=== PATIENT | male | born 1945 | race Caucasian/White ===

== ENCOUNTER 2016-10-29 14:20 | Outpatient (CLI) | payer MEDICARE, OTHER | END 2016-10-29 14:21 | disposition home or self-care (01) | LOC: LAB.WCP 14:20 | PROVIDERS: ATTEND Family Medicine | DX: L97.821 Non-pressure chronic ulcer of other part of left lower leg limited to breakdown of skin (principal) | CPT/HCPCS: 87070; 87205 ==

== ENCOUNTER 2016-10-30 07:57 | Outpatient (CLI) | payer MEDICARE, OTHER ==
[2016-10-30 19:47] LABS: BASOPHILS # (AUTO) 0.1 10^3/uL (0.0-0.1); EOSINOPHILS # (AUTO) 0.1 10^3/uL (0.0-0.7); EOSINOPHILS % (AUTO) 1.8 %; HCT - HEMATOCRIT 36.5 % (42.0-52.0); HGB - HEMOGLOBIN 12.1 g/dL (14.0-18.0); LYMPHOCYTES # (AUTO) 1.6 10^3/uL (1.5-3.5); LYMPHOCYTES % (AUTO) 23.2 %; MEAN CORPUSCULAR HEMOGLOBIN 32.7 pg (27.0-31.0); MEAN CORPUSCULAR HGB CONC 33.2 g/dL (32.0-36.0); MEAN CORPUSCULAR VOLUME 98.5 fL (80.0-94.0); MEAN PLATELET VOLUME 9.3 fL (7.4-11.4); MONOCYTES # (AUTO) 0.7 10^3/uL (0.0-1.0); MONOCYTES % (AUTO) 10.5 %; NEUTROPHILS # (AUTO) 4.3 10^3/uL (1.5-6.6); NEUTROPHILS % (AUTO) 63.5 %; NUCLEATED RED BLOOD CELLS AUTO 0.1 /100WBC; RED CELL DISTRIBUTION WIDTH 13.7 % (12.0-15.0); UNCORRECTED WHITE BLOOD COUNT 6.9 x10^3/uL; WHITE BLOOD COUNT 6.9 x10^3/uL (4.8-10.8)
[2016-10-30 20:15] LABS: HEMOGLOBIN A1C 0.52 g/dL
[2016-10-30 20:25] LABS: ALBUMIN/GLOBULIN RATIO 1.4 (1.0-2.2); BILIRUBIN,TOTAL 0.8 mg/dL (0.2-1.0); BUN - BLOOD UREA NITROGEN 32 mg/dL (6-20); CALCIUM 9.4 mg/dL (8.5-10.3); CARBON DIOXIDE - CO2 28 mmol/L (21-32); CHLORIDE 102 mmol/L (101-111); CHOL/HDL RATIO 5.1 (<5.0); CHOLESTEROL 224 mg/dL; CREATININE 1.8 mg/dL (0.6-1.2); GFR - MDRD 37 (>89); GLUCOSE 123 mg/dL (70-100); HDL CHOLESTEROL 44 mg/dL; LDL/HDL RATIO 3.2 (<3.6); POTASSIUM 4.7 mmol/L (3.5-5.0); SODIUM 139 mmol/L (135-145); TOTAL PROTEIN 7.1 g/dL (6.7-8.2); TRIGLYCERIDES 191 mg/dL; VLDL CHOLESTEROL 38 mg/dL
== END 2016-10-30 07:58 | disposition home or self-care (01) ==
LOC: LAB.WCP 07:57
PROVIDERS: ATTEND Family Medicine
DX: R60.9 Edema, unspecified (principal); I10 Essential (primary) hypertension; N28.9 Disorder of kidney and ureter, unspecified; E78.5 Hyperlipidemia, unspecified; E74.39 Other disorders of intestinal carbohydrate absorption; R73.01 Impaired fasting glucose
CPT/HCPCS: 36415; 80053; 80061; 83036; 84443; 85025

== ENCOUNTER 2017-01-23 13:27 | Outpatient (CLI) | payer MEDICARE, OTHER ==
[2017-01-23] MEDS ORDERED: ALBUTEROL NEB 2.5 MG/3 ML INH ONE (14:30)
== END 2017-01-23 13:28 | disposition home or self-care (01) ==
LOC: RT 13:27
PROVIDERS: ATTEND Physician Assistant Medical
DX: R06.00 Dyspnea, unspecified (principal)
CPT/HCPCS: 94060; 94729; J7613

== ENCOUNTER 2017-02-14 14:15 | Outpatient (CLI) | payer MEDICARE, OTHER ==
[2017-02-14 13:19] LABS: BASOPHILS # (AUTO) 0.1 10^3/uL (0.0-0.1); BASOPHILS % (AUTO) 0.7 %; EOSINOPHILS # (AUTO) 0.1 10^3/uL (0.0-0.7); EOSINOPHILS % (AUTO) 1.8 %; HCT - HEMATOCRIT 35.6 % (42.0-52.0); HGB - HEMOGLOBIN 12.1 g/dL (14.0-18.0); LYMPHOCYTES # (AUTO) 1.5 10^3/uL (1.5-3.5); LYMPHOCYTES % (AUTO) 20.3 %; MEAN CORPUSCULAR HEMOGLOBIN 32.8 pg (27.0-31.0); MEAN CORPUSCULAR VOLUME 96.5 fL (80.0-94.0); MEAN PLATELET VOLUME 9.5 fL (7.4-11.4); MONOCYTES # (AUTO) 0.6 10^3/uL (0.0-1.0); MONOCYTES % (AUTO) 8.3 %; NEUTROPHILS % (AUTO) 68.9 %; NUCLEATED RED BLOOD CELLS AUTO 0.1 /100WBC; RED BLOOD COUNT 3.69 10^6/uL (4.70-6.10); RED CELL DISTRIBUTION WIDTH 13.1 % (12.0-15.0); UNCORRECTED WHITE BLOOD COUNT 7.3 x10^3/uL; WHITE BLOOD COUNT 7.3 x10^3/uL (4.8-10.8)
[2017-02-14 14:22] LABS: ALBUMIN/GLOBULIN RATIO 1.3 (1.0-2.2); BILIRUBIN,TOTAL 0.7 mg/dL (0.2-1.0); BUN - BLOOD UREA NITROGEN 31 mg/dL (6-20); CARBON DIOXIDE - CO2 25 mmol/L (21-32); CHLORIDE 106 mmol/L (101-111); CHOL/HDL RATIO 4.8 (<5.0); CHOLESTEROL 219 mg/dL; CREATININE 1.8 mg/dL (0.6-1.2); GFR - MDRD 37 (>89); GLUCOSE 107 mg/dL (70-100); HDL CHOLESTEROL 46 mg/dL; LDL/HDL RATIO 3.1 (<3.6); POTASSIUM 5.1 mmol/L (3.5-5.0); SODIUM 138 mmol/L (135-145); TOTAL PROTEIN 7.2 g/dL (6.7-8.2); TRIGLYCERIDES 151 mg/dL; VLDL CHOLESTEROL 30 mg/dL
[2017-02-14 14:36] LABS: HEMOGLOBIN A1C 0.46 g/dL
== END 2017-02-14 14:16 | disposition home or self-care (01) ==
LOC: LAB.WCP 14:15
PROVIDERS: ATTEND Physician Assistant Medical
DX: I10 Essential (primary) hypertension (principal); R73.01 Impaired fasting glucose; Z12.5 Encounter for screening for malignant neoplasm of prostate; E78.5 Hyperlipidemia, unspecified
CPT/HCPCS: 36415; 80053; 80061; 83036; 85025; G0103; 84153

== ENCOUNTER 2017-03-22 06:44 | Emergency (ER) | payer MEDICARE, OTHER ==
[2017-03-22] MEDS ORDERED: SODIUM CHLORIDE 0.9% 1,000 ML IV ONE (07:16)
--- NOTE | 2017-03-22 07:18 | ED Physician Documentation ---
PD HPI ABD PAIN - Stated complaint Stated Complaint: ABD PX - Chief complaint Chief Complaint: Abd Pain - History obtained from History obtained from: Patient (Pt states that last night at approx 1730 he had the gradual onset of epigastric abd pain that was sharp and has continued throughout the night and is not diffuse in his ABD. no nausea or vomiting, no diarrhea, states that he had a small BM yesterday AM with his last BM 2 days ago.) - History of Present Illness Timing - details: Gradual onset, Still present Quality: Sharp Location: All over / everywhere Radiation: No: Chest, Lower back, Left flank, Left shoulder, Right shoulder, Upper back Improved by: Other (nothing) Worsened by: Other (nothing) Review of Systems Constitutional: denies: Fever, Chills, Fatigue Ears: denies: Tinnitus/ringing Nose: denies: Rhinorrhea / runny nose, Congestion, Sinus pressure / pain Throat: denies: Sore throat Cardiac: reports: Pedal edema (chronic LE swelling). denies: Chest pain / pressure, Palpitations Respiratory: reports: Dyspnea (has COPD and now with SOB because of the pain) GI: reports: Abdominal Pain, Abdominal Swelling, Constipation. denies: Nausea, Diarrhea, Hematemesis : denies: Dysuria, Frequency, Hesitancy, Unable to Void, Incontinent Skin: denies: Rash, Lesions Musculoskeletal: denies: Back pain, Joint pain Neurologic: denies: Generalized weakness, Headache, LOC PD PAST MEDICAL HISTORY - Past Medical History Past Medical History: Yes Cardiovascular: None, Hypertension, High cholesterol Respiratory: Shortness of breath, Sleep apnea, CPAP use Endocrine/Autoimmune: None GI: Chronic constipation : None HEENT: Other Psych: None Musculoskeletal: Osteoarthritis Derm: None - Past Surgical History Past Surgical History: Yes General: Colonoscopy Ortho: Rotator cuff repair - Present Medications Home Medications: Ambulatory Orders Medication Instructions Recorded Confirmed Atenolol 50 mg PO BID 09/29/14 03/22/17 Gluc/Kartik-MSM#1/C/Boby/Carmine/Bor 2 each PO DAILY 09/29/14 03/22/17 [Osteo Bi-Flex Caplet] Magnesium Citrate 400 mg PO DAILY 09/29/14 03/22/17 Telmisartan/Hydrochlorothiazid 80 mg PO BID 09/29/14 03/22/17 [Micardis Hct 80-12.5 mg Tablet] Aspirin/Calcium Carbonate/Mag 1 tab PO DAILY 11/10/14 03/22/17 [Aspirin Buffered 325 mg Tab] Gabapentin 1 tab PO TID 03/22/17 03/22/17 Loratadine 1 tab PO DAILY 03/22/17 03/22/17 Meloxicam 1 tab PO DAILY 03/22/17 03/22/17 Multivitamin [Multivitamins] 1 tab PO DAILY 03/22/17 03/22/17 Tamsulosin [Flomax] 1 tab PO DAILY 03/22/17 03/22/17 - Allergies Allergies/Adverse Reactions: Allergies Allergy/AdvReac Type Severity Reaction Status Date / Time chlorzoxazone Allergy Anxiety Verified 11/09/14 14:12 [From [facility]] - Social History Does the pt smoke?: No Smoking Status: Never smoker Does the pt drink ETOH?: Yes Does the pt have substance abuse?: No PD ED PE NORMAL - General General: Alert and oriented X 3 - HEENT HEENT: Atraumatic, Moist mucous membranes - Cardiac Cardiac: RRR, No murmur, No gallop - Respiratory Respiratory: No respiratory distress, Clear bilaterally - Back Back: No CVA TTP, No spinal TTP - Derm Derm: Normal color, No rash - Extremities Extremities: No deformity. No: No edema (1+ pitting edema bilateral LE ) - Neuro Neuro: Alert and oriented X 3 Eye Opening: Spontaneous Motor: Obeys Commands Verbal: Oriented GCS Score: 15 - Psych Psych: Normal mood, Normal affect PD ED PE EXPANDED - Abdomen Abdomen: Decreased BS, Distended, Tender to palpation, Generalized/diffuse. No : Rebound, Guarding Results - Vitals Vitals: Vital Signs - 24 hr 03/22/17 03/22/17 06:51 09:43 Temperature 35.3 C L 36.7 C Heart Rate 100 102 H Respiratory 20 12 Rate Blood Pressure 142/70 H 156/70 H O2 Saturation 100 98 Oxygen O2 Source Room air - Labs Labs: Laboratory Tests 03/22/17 03/22/17 03/22/17 07:31 07:31 07:31 WBC 15.0 H RBC 3.76 L Hgb 12.2 L Hct 35.6 L MCV 94.6 H MCH 32.3 H MCHC 34.1 RDW 12.6 Plt Count 195 MPV 8.4 Neut # 12.6 H Lymph # 1.2 L Griggs # 1.1 H Eos # 0.1 Baso # 0.1 Absolute Nucleated RBC 0.01 Nucleated RBC % 0.1 Sodium 134 L Potassium 4.5 Chloride 100 L Carbon Dioxide 24 Anion Gap 10.0 BUN 39 H Creatinine 2.3 H Estimated GFR (MDRD) 28 L Glucose 139 H Lactic Acid 1.2 Calcium 9.2 Total Bilirubin 0.6 AST 28 ALT 29 Alkaline Phosphatase 57 Total Protein 8.1 Albumin 4.4 Globulin 3.7 Albumin/Globulin Ratio 1.2 Lipase 31 - Rads (name of study) CT abd/pelvis Radiology: Final report received, EMP read contemporaneously PD MEDICAL DECISION MAKING - ED course Complexity details: d/w patient, d/w family ED course: CT neg for acute pathology. LFT's unremarkable. Pt has enlarged liver but after talking with him he states that he has been told this in the past and it does not seem to be an acute finding. He still has his GB but his LFT's are normal and his hx and PE is not C/W GB pathology and the CT reported a normal GB. He has no urinary sx. His creat is elevated today but looking at his past labs this seems to be the normal for him. He states that he has had elevated creat in the past and he states that he has not been drinking enough water the past couple days. He does have an elevated WBC count but has no indication of an acute infection. Discussed with the pt. he will take some OTC laxative to help with his self described constipation and will return to the ER if his symptoms worsen. Departure - Departure Disposition: 01 Home, Self Care Clinical Impression: Abdominal pain Qualifiers: Abdominal location: generalized Qualified Code(s): R10.84 - Generalized abdominal pain Constipation Qualifiers: Constipation type: unspecified constipation type Qualified Code(s): K59.00 - Constipation, unspecified Condition: Good Instructions: Abdominal Pain, ED Constipation Follow-Up: Darline Carrasco PA-C [Primary Care Provider] - Comments: Return to the ER for any new or worsening symptoms.
[2017-03-22] MEDS ORDERED: IOPAMIDOL-300 100 ML VIAL ONE (07:22)
[2017-03-22 07:43] LABS: BASOPHILS # (AUTO) 0.1 10^3/uL (0.0-0.1); BASOPHILS % (AUTO) 0.6 %; EOSINOPHILS # (AUTO) 0.1 10^3/uL (0.0-0.7); EOSINOPHILS % (AUTO) 0.4 %; HCT - HEMATOCRIT 35.6 % (42.0-52.0); HGB - HEMOGLOBIN 12.2 g/dL (14.0-18.0); LYMPHOCYTES # (AUTO) 1.2 10^3/uL (1.5-3.5); LYMPHOCYTES % (AUTO) 7.9 %; MEAN CORPUSCULAR HEMOGLOBIN 32.3 pg (27.0-31.0); MEAN CORPUSCULAR HGB CONC 34.1 g/dL (32.0-36.0); MEAN CORPUSCULAR VOLUME 94.6 fL (80.0-94.0); MEAN PLATELET VOLUME 8.4 fL (7.4-11.4); MONOCYTES # (AUTO) 1.1 10^3/uL (0.0-1.0); NEUTROPHILS # (AUTO) 12.6 10^3/uL (1.5-6.6); NEUTROPHILS % (AUTO) 84.1 %; NUCLEATED RED BLOOD CELLS AUTO 0.1 /100WBC; RED BLOOD COUNT 3.76 10^6/uL (4.70-6.10); RED CELL DISTRIBUTION WIDTH 12.6 % (12.0-15.0)
[2017-03-22 07:52] LABS: ALBUMIN/GLOBULIN RATIO 1.2 (1.0-2.2); BILIRUBIN,TOTAL 0.6 mg/dL (0.2-1.0); CALCIUM 9.2 mg/dL (8.5-10.3); CREATININE 2.3 mg/dL (0.6-1.2); POTASSIUM 4.5 mmol/L (3.5-5.0); TOTAL PROTEIN 8.1 g/dL (6.7-8.2)
--- NOTE | 2017-03-22 09:31 | CT Preliminary Report ---
Exam: CT ABDOMEN/PELVIS W/O IMPRESSION: 1. No acute abnormality in the abdomen or pelvis. No significant change from prior. 2. Hepatic steatosis and borderline hepatomegaly. 3. Other chronic and incidental findings as above. [facility] SITE ID: [id number]
--- NOTE | 2017-03-22 09:33 | CT Report ---
EXAM: CT ABDOMEN AND PELVIS (CT KUB) EXAM DATE: 03/22/2017 09:12 AM. CLINICAL HISTORY: Diffuse abdominal pain . COMPARISONS: 11/09/2014. TECHNIQUE: Routine axial helical CT imaging was performed through the abdomen and pelvis without IV c ontrast (low GFR). Reconstructions: Coronal and sagittal. In accordance with CT protocol optimization, one or more of the following dose reduction techniques w ere utilized for this exam: automated exposure control, adjustment of mA and/or KV based on patient s ize, or use of iterative reconstructive technique. FINDINGS: Lung Bases: Grossly clear. No pleural effusion. Mild eventration of the right hemidiaphragm. Right Kidney/Ureter: Small exophytic cysts again demonstrated. No hydronephrosis or nephrolithiasis. Mild perinephric fat stranding is similar to prior and likely chronic. Left Kidney/Ureter: Small to moderate exophytic cysts again demonstrated. No hydronephrosis or nephro lithiasis. Mild perinephric stranding is similar to prior and likely chronic. Other Solid Organs: Diffusely decreased attenuation of the hepatic parenchyma. Noncontrast images of the spleen, pancreas, and bilateral adrenal glands demonstrate no significant abnormality. Gallbladder/Bile Ducts: Unremarkable. Peritoneal Cavity: No ascites or pneumoperitoneum. No bowel obstruction or abnormal stool burden. Mil d diverticulosis without diverticulitis. Normal appendix. No focal inflammatory fat stranding. No lym phadenopathy demonstrated. Pelvic Organs: The urinary bladder and imaged pelvic organs demonstrate no significant abnormality. Vasculature: Moderate vascular calcifications. No aneurysm. Other: Multilevel moderate to severe degenerative change of the spine as before. No acute osseous abn ormality or aggressive osseous lesion. IMPRESSION: 1. No acute abnormality in the abdomen or pelvis. No significant change from prior. 2. Hepatic steatosis and borderline hepatomegaly. 3. Other chronic and incidental findings as above. [facility] Referring Provider Line: [phone] SITE ID: [id number]
[2017-03-22 09:44] VITALS: BP 156/70
== END 2017-03-22 10:34 | disposition home or self-care (01) ==
LOC: ED 06:44
DX: K59.00 Constipation, unspecified (principal); R10.84 Generalized abdominal pain; I10 Essential (primary) hypertension; E78.00 Pure hypercholesterolemia, unspecified; G47.30 Sleep apnea, unspecified; M19.90 Unspecified osteoarthritis, unspecified site; Z79.82 Long term (current) use of aspirin
CPT/HCPCS: 36415; 74176; 80053; 83605; 83690; 85025; 96360; 99283; 99284

== ENCOUNTER 2017-05-22 07:57 | Outpatient (CLI) | payer MEDICARE, OTHER ==
[2017-05-22 12:53] LABS: HGB - HEMOGLOBIN 11.7 g/dL (14.0-18.0); MEAN CORPUSCULAR HEMOGLOBIN 32.7 pg (27.0-31.0); MEAN CORPUSCULAR HGB CONC 32.2 g/dL (32.0-36.0); MEAN CORPUSCULAR VOLUME 101.6 fL (80.0-94.0); RED BLOOD COUNT 3.56 10^6/uL (4.70-6.10); RED CELL DISTRIBUTION WIDTH 13.1 % (12.0-15.0); WHITE BLOOD COUNT 7.9 x10^3/uL (4.8-10.8)
[2017-05-22 13:00] LABS: CALCIUM 9.2 mg/dL (8.5-10.3); CREATININE 2.3 mg/dL (0.6-1.2)
[2017-05-22 13:07] LABS: CREATININE,URINE 117.9 mg/dL; PROTEIN/CREATININE RATIO,URINE 0.1 (<=0.2)
== END 2017-05-22 07:58 | disposition home or self-care (01) ==
LOC: LAB.WCP 07:57
PROVIDERS: ATTEND Internal Medicine Nephrology
DX: N05.9 Unspecified nephritic syndrome with unspecified morphologic changes (principal); D70.9 Neutropenia, unspecified; R80.9 Proteinuria, unspecified
CPT/HCPCS: 36415; 80048; 82570; 84156

== ENCOUNTER 2017-06-18 08:00 | Outpatient (CLI) | payer MEDICARE, OTHER ==
[2017-06-18 12:26] LABS: BASOPHILS # (AUTO) 0.1 10^3/uL (0.0-0.1); BASOPHILS % (AUTO) 0.8 %; EOSINOPHILS # (AUTO) 0.1 10^3/uL (0.0-0.7); HGB - HEMOGLOBIN 12.3 g/dL (14.0-18.0); LYMPHOCYTES # (AUTO) 1.5 10^3/uL (1.5-3.5); LYMPHOCYTES % (AUTO) 14.5 %; MEAN CORPUSCULAR VOLUME 94.1 fL (80.0-94.0); MONOCYTES # (AUTO) 0.9 10^3/uL (0.0-1.0); MONOCYTES % (AUTO) 8.6 %; NEUTROPHILS # (AUTO) 7.6 10^3/uL (1.5-6.6); NEUTROPHILS % (AUTO) 75.1 %; PLT - PLATELET COUNT 238 10^3/uL (130-450); RED BLOOD COUNT 3.74 10^6/uL (4.70-6.10); RED CELL DISTRIBUTION WIDTH 12.5 % (12.0-15.0); WHITE BLOOD COUNT 10.1 x10^3/uL (4.8-10.8)
[2017-06-18 13:03] LABS: FERRITIN 744.7 ng/mL (23.9-336.2)
[2017-06-18 13:16] LABS: CALCIUM 9.5 mg/dL (8.5-10.3); CREATININE 2.5 mg/dL (0.6-1.2)
== END 2017-06-18 08:01 | disposition home or self-care (01) ==
LOC: LAB.WCP 08:00
PROVIDERS: ATTEND Physician Assistant Medical
DX: N28.9 Disorder of kidney and ureter, unspecified (principal); D64.9 Anemia, unspecified
CPT/HCPCS: 36415; 80048; 82607; 82728; 82746; 83540; 84466; 85025

== ENCOUNTER 2017-07-26 08:00 | Outpatient (CLI) | payer MEDICARE, OTHER ==
[2017-07-26 12:49] LABS: CALCIUM 9.3 mg/dL (8.5-10.3); CREATININE 1.6 mg/dL (0.6-1.2)
== END 2017-07-26 08:01 | disposition home or self-care (01) ==
LOC: LAB.WCP 08:00
PROVIDERS: ATTEND Internal Medicine Nephrology
DX: N05.9 Unspecified nephritic syndrome with unspecified morphologic changes (principal)
CPT/HCPCS: 36415; 80048

== ENCOUNTER 2018-01-09 09:35 | Outpatient (CLI) | payer MEDICARE, OTHER ==
[2018-01-09 12:34] LABS: BASOPHILS % (AUTO) 0.5 %; EOSINOPHILS # (AUTO) 0.1 10^3/uL (0.0-0.7); EOSINOPHILS % (AUTO) 1.4 %; HGB - HEMOGLOBIN 12.9 g/dL (14.0-18.0); LYMPHOCYTES # (AUTO) 1.8 10^3/uL (1.5-3.5); LYMPHOCYTES % (AUTO) 19.4 %; MEAN CORPUSCULAR HGB CONC 34.5 g/dL (32.0-36.0); MEAN CORPUSCULAR VOLUME 92.7 fL (80.0-94.0); MONOCYTES # (AUTO) 0.8 10^3/uL (0.0-1.0); MONOCYTES % (AUTO) 8.9 %; NEUTROPHILS # (AUTO) 6.6 10^3/uL (1.5-6.6); NEUTROPHILS % (AUTO) 69.8 %; PLT - PLATELET COUNT 235 10^3/uL (130-450); RED BLOOD COUNT 4.04 10^6/uL (4.70-6.10); WHITE BLOOD COUNT 9.4 x10^3/uL (4.8-10.8)
[2018-01-09 12:36] LABS: CALCIUM 9.3 mg/dL (8.5-10.3); CREATININE 1.7 mg/dL (0.6-1.2)
== END 2018-01-09 09:36 ==
LOC: LAB.WCP 09:35
PROVIDERS: ATTEND Physician Assistant Medical
DX: N28.9 Disorder of kidney and ureter, unspecified (principal); D64.9 Anemia, unspecified
CPT/HCPCS: 36415; 80048; 85025

== ENCOUNTER 2018-04-25 12:18 | Outpatient (CLI) | payer MEDICARE, OTHER ==
--- NOTE | 2018-04-25 16:08 | XRAY Report ---
Reason: RIB PAIN, LEFT SIDED, UNSPECIFIED FALL, INITIAL EN Procedure Date: 04/25/2018 Accession Number: [id number] / [id number] Procedure: XR - Ribs w/PA Chest LT CPT Code: FULL RESULT: EXAM: LEFT RIB RADIOGRAPHY EXAM DATE: 04/25/2018 12:56 PM. CLINICAL HISTORY: Rib pain, left-sided, unspecified fall, initial encounter. COMPARISON: CHEST 2 VIEW PA/LAT 11/09/2014 2:59 PM. TECHNIQUE: 1 view of the chest and 2 views of the ribs. FINDINGS: Bones: There is a displaced fracture of the right posterolateral seventh rib roughly 75% of the rib width. No definite additional fractures. Lungs: No focal opacities. No pneumothorax. No pleural effusions. Mediastinum: Heart and mediastinal contours are unremarkable. Other: None. IMPRESSION: Displaced fracture of the right posterior lateral seventh rib. [facility]
== END 2018-04-25 12:19 | disposition home or self-care (01) ==
LOC: DI 12:18
PROVIDERS: ATTEND Family Medicine
DX: S22.31XA Fracture of one rib, right side, initial encounter for closed fracture (principal)

== ENCOUNTER 2018-08-18 08:00 | Outpatient (CLI) | payer MEDICARE, OTHER ==
[2018-08-18 12:53] LABS: ALBUMIN 3.8 g/dL (3.2-5.5); ALBUMIN/GLOBULIN RATIO 1.2 (1.0-2.2); ALKALINE PHOSPHATASE 73 IU/L (42-121); ALT ALANINE AMINOTRANSFERASE 25 IU/L (10-60); AST ASPARTATE AMINOTRANSFERASE 35 IU/L (10-42); BILIRUBIN,TOTAL 0.8 mg/dL (0.2-1.0); BUN - BLOOD UREA NITROGEN 20 mg/dL (6-20); CALCIUM 9.3 mg/dL (8.5-10.3); CARBON DIOXIDE - CO2 23 mmol/L (21-32); CHLORIDE 102 mmol/L (101-111); CHOL/HDL RATIO 4.2 (<5.0); CHOLESTEROL 243 mg/dL; CREATININE 1.5 mg/dL (0.6-1.2); GFR - MDRD 46 (>89); GLUCOSE 151 mg/dL (70-100); HDL CHOLESTEROL 58 mg/dL; LDL CHOLESTEROL,CALCULATED 147 mg/dL; LDL/HDL RATIO 2.5 (<3.6); SODIUM 135 mmol/L (135-145); TOTAL PROTEIN 7.1 g/dL (6.7-8.2); VLDL CHOLESTEROL 38 mg/dL
== END 2018-08-18 23:59 | disposition home or self-care (01) ==
LOC: LAB.WCP 08:00
PROVIDERS: ATTEND Physician Assistant Medical
DX: E78.5 Hyperlipidemia, unspecified (principal)
CPT/HCPCS: 36415; 80053; 80061; 83721

== ENCOUNTER 2018-08-21 08:05 | Outpatient (CLI) | payer MEDICARE, OTHER ==
[2018-08-21 14:30] LABS: HB2 TOTAL 14.3 g/dL; HEMOGLOBIN A1C 0.52 g/dL; HEMOGLOBIN A1C % 5.5 % (4.6-6.2)
== END 2018-08-21 08:06 | disposition home or self-care (01) ==
LOC: LAB.WCP 08:05
PROVIDERS: ATTEND Physician Assistant Medical
DX: R73.01 Impaired fasting glucose (principal)
CPT/HCPCS: 36415; 83036

== ENCOUNTER 2018-12-17 08:00 | Outpatient (CLI) | payer MEDICARE, OTHER ==
[2018-12-17 12:14] LABS: BASOPHILS # (AUTO) 0.1 10^3/uL (0.0-0.1); EOSINOPHILS # (AUTO) 0.2 10^3/uL (0.0-0.7); EOSINOPHILS % (AUTO) 2.2 %; HGB - HEMOGLOBIN 12.9 g/dL (14.0-18.0); LYMPHOCYTES # (AUTO) 1.9 10^3/uL (1.5-3.5); MEAN CORPUSCULAR HEMOGLOBIN 30.9 pg (27.0-31.0); MEAN CORPUSCULAR HGB CONC 32.3 g/dL (32.0-36.0); MEAN CORPUSCULAR VOLUME 95.5 fL (80.0-94.0); MEAN PLATELET VOLUME 11.1 fL (7.4-11.4); MONOCYTES # (AUTO) 0.6 10^3/uL (0.0-1.0); MONOCYTES % (AUTO) 7.8 %; NEUTROPHILS # (AUTO) 5.3 10^3/uL (1.5-6.6); NEUTROPHILS % (AUTO) 65.6 %; PLT - PLATELET COUNT 220 10^3/uL (130-450); RED BLOOD COUNT 4.18 10^6/uL (4.70-6.10); RED CELL DISTRIBUTION WIDTH 13.2 % (12.0-15.0)
[2018-12-17 12:31] LABS: ALBUMIN 3.8 g/dL (3.2-5.5); ALBUMIN/GLOBULIN RATIO 1.2 (1.0-2.2); ALKALINE PHOSPHATASE 67 IU/L (42-121); ALT ALANINE AMINOTRANSFERASE 23 IU/L (10-60); AST ASPARTATE AMINOTRANSFERASE 33 IU/L (10-42); BILIRUBIN,TOTAL 0.8 mg/dL (0.2-1.0); BUN - BLOOD UREA NITROGEN 19 mg/dL (6-20); CALCIUM 9.5 mg/dL (8.5-10.3); CARBON DIOXIDE - CO2 25 mmol/L (21-32); CHLORIDE 106 mmol/L (101-111); CHOL/HDL RATIO 4.7 (<5.0); CHOLESTEROL 238 mg/dL; CREATININE 1.6 mg/dL (0.6-1.2); GFR - MDRD 42 (>89); GLUCOSE 113 mg/dL (70-100); HDL CHOLESTEROL 51 mg/dL; LDL CHOLESTEROL,CALCULATED 150 mg/dL; LDL/HDL RATIO 2.9 (<3.6); SODIUM 142 mmol/L (135-145); TOTAL PROTEIN 7.1 g/dL (6.7-8.2); VLDL CHOLESTEROL 37 mg/dL
[2018-12-17 12:37] LABS: HB2 TOTAL 13.9 g/dL; HEMOGLOBIN A1C 0.47 g/dL; HEMOGLOBIN A1C % 5.2 % (4.6-6.2)
== END 2018-12-17 23:59 | disposition home or self-care (01) ==
LOC: LAB.WCP 08:00
PROVIDERS: ATTEND Physician Assistant Medical
DX: R73.01 Impaired fasting glucose (principal); E78.5 Hyperlipidemia, unspecified; D64.9 Anemia, unspecified
CPT/HCPCS: 36415; 80053; 80061; 83036; 83721; 85025

== ENCOUNTER 2019-02-11 08:00 | Outpatient (CLI) | payer MEDICARE, OTHER ==
[2019-02-11 12:21] LABS: ALBUMIN 3.9 g/dL (3.2-5.5); ALBUMIN/GLOBULIN RATIO 1.1 (1.0-2.2); BILIRUBIN,TOTAL 0.8 mg/dL (0.2-1.0); CALCIUM 9.4 mg/dL (8.5-10.3); CREATININE 1.6 mg/dL (0.6-1.2); TOTAL PROTEIN 7.6 g/dL (6.7-8.2)
[2019-02-11 12:28] LABS: BASOPHILS # (AUTO) 0.1 10^3/uL (0.0-0.1); BASOPHILS % (AUTO) 0.8 %; EOSINOPHILS # (AUTO) 0.2 10^3/uL (0.0-0.7); EOSINOPHILS % (AUTO) 1.7 %; HGB - HEMOGLOBIN 13.3 g/dL (14.0-18.0); LYMPHOCYTES % (AUTO) 20.2 %; MEAN CORPUSCULAR HEMOGLOBIN 31.1 pg (27.0-31.0); MEAN CORPUSCULAR HGB CONC 33.4 g/dL (32.0-36.0); MEAN CORPUSCULAR VOLUME 93.2 fL (80.0-94.0); MEAN PLATELET VOLUME 11.1 fL (7.4-11.4); MONOCYTES # (AUTO) 0.7 10^3/uL (0.0-1.0); MONOCYTES % (AUTO) 7.2 %; NEUTROPHILS # (AUTO) 6.7 10^3/uL (1.5-6.6); NEUTROPHILS % (AUTO) 69.6 %; PLT - PLATELET COUNT 253 10^3/uL (130-450); RED BLOOD COUNT 4.27 10^6/uL (4.70-6.10); RED CELL DISTRIBUTION WIDTH 13.2 % (12.0-15.0); WHITE BLOOD COUNT 9.7 x10^3/uL (4.8-10.8)
== END 2019-02-11 23:59 | disposition home or self-care (01) ==
LOC: LAB.WCP 08:00
PROVIDERS: ATTEND Physician Assistant Medical
DX: I10 Essential (primary) hypertension (principal); R42 Dizziness and giddiness; D64.9 Anemia, unspecified
CPT/HCPCS: 36415; 80053; 84443; 85025

== ENCOUNTER 2019-06-16 08:14 | Outpatient (CLI) | payer MEDICARE, OTHER ==
[2019-06-16 12:24] LABS: CALCIUM 9.1 mg/dL (8.5-10.3); CREATININE 1.8 mg/dL (0.6-1.2)
[2019-06-16 12:29] LABS: CHOL/HDL RATIO 5.4 (<5.0); CHOLESTEROL 294 mg/dL; HDL CHOLESTEROL 54 mg/dL; LDL CHOLESTEROL,CALCULATED 191 mg/dL; LDL/HDL RATIO 3.5 (<3.6); VLDL CHOLESTEROL 49 mg/dL
== END 2019-06-16 23:59 | disposition home or self-care (01) ==
LOC: LAB.WCP 08:14
PROVIDERS: ATTEND Internal Medicine Nephrology
DX: E78.5 Hyperlipidemia, unspecified (principal); N05.9 Unspecified nephritic syndrome with unspecified morphologic changes; I50.32 Chronic diastolic (congestive) heart failure; N18.9 Chronic kidney disease, unspecified; E83.40 Disorders of magnesium metabolism, unspecified
CPT/HCPCS: 36415; 80048; 80061; 83721; 83735; 83880

== ENCOUNTER 2019-07-16 08:00 | Outpatient (CLI) | payer MEDICARE, OTHER ==
[2019-07-16 12:32] LABS: HEMOGLOBIN A1C 0.5 g/dL; HEMOGLOBIN A1C % 5.4 % (4.6-6.2)
== END 2019-07-16 23:59 | disposition home or self-care (01) ==
LOC: LAB.WCP 08:00
PROVIDERS: ATTEND Physician Assistant Medical
DX: R73.9 Hyperglycemia, unspecified (principal)
CPT/HCPCS: 36415; 83036

== ENCOUNTER 2019-08-26 07:00 | Outpatient (CLI) | payer MEDICARE, OTHER ==
[2019-08-26 13:00] LABS: CALCIUM 9.3 mg/dL (8.5-10.3); CREATININE 1.8 mg/dL (0.6-1.2)
== END 2019-08-26 23:59 | disposition home or self-care (01) ==
LOC: LAB.WCP 07:00
PROVIDERS: ATTEND Internal Medicine Nephrology
DX: N05.9 Unspecified nephritic syndrome with unspecified morphologic changes (principal)
CPT/HCPCS: 36415; 80048

== ENCOUNTER 2019-10-06 07:54 | Outpatient (CLI) | payer MEDICARE, OTHER ==
[2019-10-06 12:23] LABS: HB2 TOTAL 13.7 g/dL; HEMOGLOBIN A1C 0.47 g/dL; HEMOGLOBIN A1C % 5.3 % (4.6-6.2)
[2019-10-06 12:25] LABS: ALBUMIN 3.6 g/dL (3.2-5.5); ALBUMIN/GLOBULIN RATIO 0.9 (1.0-2.2); ALKALINE PHOSPHATASE 76 IU/L (42-121); ALT ALANINE AMINOTRANSFERASE 20 IU/L (10-60); AST ASPARTATE AMINOTRANSFERASE 31 IU/L (10-42); BILIRUBIN,TOTAL 0.6 mg/dL (0.2-1.0); BUN - BLOOD UREA NITROGEN 18 mg/dL (6-20); CALCIUM 9.3 mg/dL (8.5-10.3); CARBON DIOXIDE - CO2 25 mmol/L (21-32); CHLORIDE 104 mmol/L (101-111); CHOL/HDL RATIO 3.1 (<5.0); CHOLESTEROL 201 mg/dL; CREATININE 1.7 mg/dL (0.6-1.2); GLUCOSE 119 mg/dL (70-100); HDL CHOLESTEROL 65 mg/dL; LDL CHOLESTEROL,CALCULATED 109 mg/dL; LDL/HDL RATIO 1.7 (<3.6); SODIUM 139 mmol/L (135-145); TOTAL PROTEIN 7.4 g/dL (6.7-8.2); VLDL CHOLESTEROL 27 mg/dL
== END 2019-10-06 23:59 | disposition home or self-care (01) ==
LOC: LAB.WCP 07:54
PROVIDERS: ATTEND Physician Assistant Medical
DX: E78.5 Hyperlipidemia, unspecified (principal); R73.9 Hyperglycemia, unspecified
CPT/HCPCS: 36415; 80053; 80061; 83036; 83721

== ENCOUNTER 2020-05-30 08:00 | Outpatient (CLI) | payer MEDICARE, OTHER ==
[2020-05-30 13:14] LABS: ALBUMIN 3.6 g/dL (3.2-5.5); ALKALINE PHOSPHATASE 87 IU/L (42-121); ALT ALANINE AMINOTRANSFERASE 21 IU/L (10-60); AST ASPARTATE AMINOTRANSFERASE 30 IU/L (10-42); BILIRUBIN,TOTAL 0.7 mg/dL (0.2-1.0); BUN - BLOOD UREA NITROGEN 21 mg/dL (6-20); CALCIUM 9.1 mg/dL (8.5-10.3); CARBON DIOXIDE - CO2 25 mmol/L (21-32); CHLORIDE 105 mmol/L (101-111); CHOL/HDL RATIO 3.4 (<5.0); CHOLESTEROL 173 mg/dL; CREATININE 1.8 mg/dL (0.6-1.2); GLUCOSE 113 mg/dL (70-100); HDL CHOLESTEROL 51 mg/dL; LDL CHOLESTEROL,CALCULATED 88 mg/dL; LDL/HDL RATIO 1.7 (<3.6); TOTAL PROTEIN 7.2 g/dL (6.7-8.2); VLDL CHOLESTEROL 34 mg/dL
[2020-05-30 13:23] LABS: HEMOGLOBIN A1c% 5.1 % (4.27-6.07)
== END 2020-05-30 23:59 | disposition home or self-care (01) ==
LOC: LAB.WCP 08:00
PROVIDERS: ATTEND Physician Assistant Medical
DX: E78.5 Hyperlipidemia, unspecified (principal); R73.01 Impaired fasting glucose
CPT/HCPCS: 36415; 80053; 80061; 83036; 83721

== ENCOUNTER 2020-11-08 08:19 | Outpatient (CLI) | payer MEDICARE, OTHER ==
[2020-11-08 15:11] LABS: ALBUMIN 3.7 g/dL (3.2-5.5); ALKALINE PHOSPHATASE 79 IU/L (42-121); ALT ALANINE AMINOTRANSFERASE 22 IU/L (10-60); AST ASPARTATE AMINOTRANSFERASE 34 IU/L (10-42); BILIRUBIN,TOTAL 0.5 mg/dL (0.2-1.0); BUN - BLOOD UREA NITROGEN 27 mg/dL (6-20); CARBON DIOXIDE - CO2 23 mmol/L (21-32); CHLORIDE 104 mmol/L (101-111); CHOLESTEROL 172 mg/dL; GFR - MDRD 33 (>89); GLUCOSE 120 mg/dL (70-100); HDL CHOLESTEROL 58 mg/dL; LDL CHOLESTEROL,CALCULATED 90 mg/dL; LDL/HDL RATIO 1.6 (<3.6); POTASSIUM 4.1 mmol/L (3.5-5.0); SODIUM 136 mmol/L (135-145); TOTAL PROTEIN 7.4 g/dL (6.7-8.2); TRIGLYCERIDES 121 mg/dL; VLDL CHOLESTEROL 24 mg/dL
[2020-11-08 16:44] LABS: ESTIMATED AVERAGE GLUCOSE 100 mg/dL (70-100); HEMOGLOBIN A1c% 5.1 % (4.27-6.07)
== END 2020-11-08 23:59 | disposition home or self-care (01) ==
LOC: LAB.WCP 08:19
PROVIDERS: ATTEND Physician Assistant Medical
DX: E78.5 Hyperlipidemia, unspecified (principal); R73.9 Hyperglycemia, unspecified
CPT/HCPCS: 36415; 80053; 80061; 83036; 83721

== ENCOUNTER 2021-02-10 11:28 | Outpatient (CLI) | payer MEDICARE, OTHER ==
--- NOTE | 2021-02-11 11:04 | XRAY Report ---
PROCEDURE: Ribs w/PA Chest RT INDICATIONS: CONTUSION OF RIGHT FRONT WALL OF THORAX TECHNIQUE: 3 views of the right ribs were acquired, along with a single view chest. COMPARISON: 04/25/2018 FINDINGS: Surgical changes and devices: None. Bones and chest wall: No fractures or dislocations. No suspicious bony lesions. Overlying soft tis sues appear unremarkable. Lungs and pleura: No pleural effusions or pneumothorax. Lungs appear clear. Low lung volumes can b e seen, causing a crowded appearance to the lung markings. Mediastinum: Mediastinal contours appear normal. Heart size is normal. IMPRESSION: No displaced rib fractures are seen. No pneumothorax. Low lung volumes. Reviewed by: Clay Ramos MD on 02/11/2021 10:03 AM [facility] Approved by: Clay Ramos MD on 02/11/2021 10:03 AM [facility] Station ID: [id number]
== END 2021-02-10 11:29 ==
LOC: DI.N 11:28
PROVIDERS: ATTEND Family Medicine
DX: S20.211A Contusion of right front wall of thorax, initial encounter (principal)

== ENCOUNTER 2022-03-23 22:51 | Emergency (ER) | payer MEDICARE, OTHER ==
[2022-03-23] MEDS ORDERED: ASPIRIN CHEW 81 MG TABLET PO STA (23:11)
[2022-03-23 23:19] LABS: BASOPHILS # (AUTO) 0.1 10^3/uL (0.0-0.1); BASOPHILS % (AUTO) 1.3 %; EOSINOPHILS # (AUTO) 0.3 10^3/uL (0.0-0.7); EOSINOPHILS % (AUTO) 4.5 %; HCT - HEMATOCRIT 35.1 % (42.0-52.0); HGB - HEMOGLOBIN 11.9 g/dL (14.0-18.0); LYMPHOCYTES # (AUTO) 1.2 10^3/uL (1.5-3.5); LYMPHOCYTES % (AUTO) 16.9 %; MEAN CORPUSCULAR HGB CONC 33.9 g/dL (32.0-36.0); MEAN CORPUSCULAR VOLUME 97.2 fL (80.0-94.0); MEAN PLATELET VOLUME 10.2 fL (7.4-11.4); MONOCYTES # (AUTO) 0.6 10^3/uL (0.0-1.0); NEUTROPHILS # (AUTO) 4.9 10^3/uL (1.5-6.6); NEUTROPHILS % (AUTO) 68.9 %; PLT - PLATELET COUNT 234 10^3/uL (130-450); RED BLOOD COUNT 3.61 10^6/uL (4.70-6.10); RED CELL DISTRIBUTION WIDTH 12.5 % (12.0-15.0); WHITE BLOOD COUNT 7.2 x10^3/uL (4.8-10.8)
[2022-03-23 23:32] LABS: ALBUMIN 3.6 g/dL (3.2-5.5); ALBUMIN/GLOBULIN RATIO 0.9 (1.0-2.2); BILIRUBIN,TOTAL 0.4 mg/dL (0.2-1.0); CALCIUM 8.9 mg/dL (8.5-10.3); CREATININE 2.5 mg/dL (0.6-1.2); POTASSIUM 3.9 mmol/L (3.5-5.0); TOTAL PROTEIN 7.5 g/dL (6.7-8.2)
--- NOTE | 2022-03-23 23:40 | ED Physician Documentation ---
PD HPI CHEST PAIN - Stated complaint Stated Complaint: CHEST PX - Chief complaint Chief Complaint: Cardiac - History obtained from History obtained from: Patient - Additional information Additional information: Patient is a 76-year-old male with a history of hypertension presenting for evaluation of chest pain that started 3 days ago. He feels it in the upper to middle part of his chest. He denies that it feels like heaviness or stabbing or sharpness. He states he notices it more when he lays back at night. He denies feeling short of breath to me other than having the mask on.Nothing makes the pain better or worse and it does not radiate anywhere. He has not taken anything for the pain. He denies recent illness with fever, cough, congestion. He denies abdominal pain, vomiting, back pain, leg pain.He denies a history of Cardiac stents. Review of Systems Constitutional: denies: Fever Nose: denies: Congestion Cardiac: reports: Chest pain / pressure Respiratory: denies: Dyspnea, Cough GI: denies: Abdominal Pain, Vomiting Musculoskeletal: denies: Back pain Neurologic: denies: Headache PD PAST MEDICAL HISTORY - Past Medical History Past Medical History: Yes Cardiovascular: None, Hypertension, High cholesterol Respiratory: Shortness of breath, Sleep apnea, CPAP use Endocrine/Autoimmune: None GI: Chronic constipation : None HEENT: Other Psych: None Musculoskeletal: Osteoarthritis Derm: None - Past Surgical History Past Surgical History: Yes General: Colonoscopy Ortho: Rotator cuff repair - Present Medications Home Medications: Ambulatory Orders Medication Instructions Recorded Confirmed Atenolol 50 mg PO BID 09/29/14 03/22/17 Glucosam/Kartik-Msm1/C/Boby/Bosw 2 each PO DAILY 09/29/14 03/22/17 [Osteo Bi-Flex Caplet] Magnesium Citrate 400 mg PO DAILY 09/29/14 03/22/17 Telmisartan/Hydrochlorothiazid 80 mg PO BID 09/29/14 03/22/17 [Micardis Hct 80-12.5 mg Tablet] Aspirin/Calcium Carbonate/Mag 1 tab PO DAILY 11/10/14 03/22/17 [Aspirin Buffered 325 mg Tab] Gabapentin 1 tab PO TID 03/22/17 03/22/17 Loratadine 1 tab PO DAILY 03/22/17 03/22/17 Meloxicam 1 tab PO DAILY 03/22/17 03/22/17 Multivitamin [Multivitamins] 1 tab PO DAILY 03/22/17 03/22/17 Tamsulosin [Flomax] 1 tab PO DAILY 03/22/17 03/22/17 - Allergies Allergies/Adverse Reactions: Allergies Allergy/AdvReac Type Severity Reaction Status Date / Time chlorzoxazone Allergy Anxiety Verified 03/23/22 23:09 [[facility] - Social History Does the pt smoke?: No Smoking Status: Never smoker Does the pt drink ETOH?: Yes Does the pt have substance abuse?: No - Immunizations Immunizations are current?: Yes - POLST Patient has POLST: No PD ED PE NORMAL - General General: Alert and oriented X 3, No acute distress, Well developed/nourished - HEENT HEENT: Atraumatic, Moist mucous membranes - Neck Neck: Supple, no meningeal sign - Cardiac Cardiac: RRR, Strong equal pulses - Respiratory Respiratory: No respiratory distress, Clear bilaterally - Abdomen Abdomen: Soft, Non tender - Derm Derm: Warm and dry - Extremities Extremities: No calf tenderness / cord, Other (Mild symmetric lower extremity edema) - Neuro Neuro: Normal speech Results - Vitals Vitals: Vital Signs - 24 hr 03/23/22 03/24/22 23:00 00:02 Temperature 37.2 C 36.6 C Heart Rate 70 60 Respiratory 12 16 Rate Blood Pressure 170/72 H 171/67 H O2 Saturation 100 100 Oxygen O2 Source Room air - EKG (time done) 2259 Rate: Rate (enter#) (70) Rhythm: NSR Godwin: Normal Intervals: Normal IA Ischemia: No: ST elevation c/w ischemia - Labs Labs: Laboratory Tests 03/23/22 03/23/22 03/23/22 23:09 23:09 23:09 WBC 7.2 RBC 3.61 L Hgb 11.9 L Hct 35.1 L MCV 97.2 H MCH 33.0 H MCHC 33.9 RDW 12.5 Plt Count 234 MPV 10.2 Neut # (Auto) 4.9 Lymph # (Auto) 1.2 L Crowley # (Auto) 0.6 Eos # (Auto) 0.3 Baso # (Auto) 0.1 Absolute Nucleated RBC 0.00 Nucleated RBC % 0.0 Sodium 139 Potassium 3.9 Chloride 102 Carbon Dioxide 24 Anion Gap 13.0 BUN 33 H Creatinine 2.5 H Estimated GFR (MDRD) 25 L Glucose 110 H Calcium 8.9 Total Bilirubin 0.4 AST 31 ALT 18 Alkaline Phosphatase 109 Troponin I High Sens 15.2 B-Natriuretic Peptide Total Protein 7.5 Albumin 3.6 Globulin 3.9 Albumin/Globulin Ratio 0.9 L 03/23/22 23:09 WBC RBC Hgb Hct MCV MCH MCHC RDW Plt Count MPV Neut # (Auto) Lymph # (Auto) Crowley # (Auto) Eos # (Auto) Baso # (Auto) Absolute Nucleated RBC Nucleated RBC % Sodium Potassium Chloride Carbon Dioxide Anion Gap BUN Creatinine Estimated GFR (MDRD) Glucose Calcium Total Bilirubin AST ALT Alkaline Phosphatase Troponin I High Sens B-Natriuretic Peptide 110 H Total Protein Albumin Globulin Albumin/Globulin Ratio PD MEDICAL DECISION MAKING - ED course Complexity details: reviewed results, re-evaluated patient, d/w patient ED course: Patient presenting for evaluation of chest pain for 3 days that seems to be worse at night.Is been constant today. He is EKG demonstrates a sinus rhythm without signs of acute ischemia. His high-sensitivity troponin is negative. He is feeling better here. He does report that he has recently become increasingly frustrated with his decreased mobility. He reports being very active and hard- working all his life and feels that he has become lazy in the last few years with his diet And activity and has become more sedentary. He has recently started with physical therapy the last 2 weeks but does not feel like this is helping And feels upset with himself for getting this way. Patient symptoms seem atypical for ACS as they are not worse with exertion and also seems less likely related to cardiac ischemia as his high-sensitivity troponin is within normal limits given constant pain all day.Also do not feel he has a pulmonary embolism as he has no unilateral leg swelling and is not hypoxic or tachycardic.Pain is not migratory to suggest a dissection. Patient was instructed on need for close follow-up with his primary care doctor and also advised on concerning symptoms to return for including any worsening pain. Departure - Departure Disposition: 01 Home, Self Care Clinical Impression: Chest pain, Chronic kidney disease Condition: Stable Instructions: ED Chest Pain Atypical Unkn Cause Follow-Up: Darline Carrasco PA-C [Primary Care Provider] - Comments: The exact cause of your chest pain is unclear but Our testing tonight does not show signs of a heart attack. You may need additional testing to check your heart and I would recommend close follow-up with your primary care provider. Please continue with your physical therapy and in taking your medications. I would recommend expressing your concerns about your current activity levels to your primary care provider to see if there are additional resources to help you get back Some mobility.If you have any worsening or new symptoms please consider return to the emergency department. Discharge Date/Time: 03/24/22 00:10
--- NOTE | 2022-03-23 23:45 | XRAY Report ---
PROCEDURE: Chest 1 View X-Ray INDICATIONS: CP TECHNIQUE: One view of the chest was acquired. COMPARISON: Chest x-ray 02/10/2021. FINDINGS: Surgical changes and devices: None. Lungs and pleura: No pleural effusions or pneumothorax. Lungs demonstrate no acute airspace opaciti es Mediastinum: Mediastinal contours appear within normal limits. Heart size is mildly enlarged. Bones and chest wall: No suspicious bony lesions. Overlying soft tissues appear unremarkable. IMPRESSION: 1. No definite acute cardiopulmonary disease. Reviewed by: Beto Solis MD on 03/23/2022 11:52 PM PST Approved by: Beto Solis MD on 03/23/2022 11:52 PM [facility] Station ID: [id number]
[2022-03-24 00:03] VITALS: BP 171/67
== END 2022-03-24 00:10 | disposition home or self-care (01) ==
LOC: ED 22:51
DX: R07.9 Chest pain, unspecified (principal); N18.9 Chronic kidney disease, unspecified
CPT/HCPCS: 36415; 71045; 80053; 83880; 84484; 85025; 93005; 99282; 99284; A9270

== ENCOUNTER 2022-03-28 08:41 | Outpatient (CLI) | payer MEDICARE, OTHER ==
[2022-03-28 12:17] LABS: BASOPHILS # (AUTO) 0.1 10^3/uL (0.0-0.1); BASOPHILS % (AUTO) 1.3 %; EOSINOPHILS # (AUTO) 0.3 10^3/uL (0.0-0.7); LYMPHOCYTES # (AUTO) 1.2 10^3/uL (1.5-3.5); LYMPHOCYTES % (AUTO) 11.9 %; MEAN CORPUSCULAR HEMOGLOBIN 33.6 pg (27.0-31.0); MEAN CORPUSCULAR HGB CONC 33.3 g/dL (32.0-36.0); MEAN CORPUSCULAR VOLUME 100.8 fL (80.0-94.0); MEAN PLATELET VOLUME 11.1 fL (7.4-11.4); MONOCYTES # (AUTO) 0.7 10^3/uL (0.0-1.0); MONOCYTES % (AUTO) 6.9 %; NEUTROPHILS # (AUTO) 7.6 10^3/uL (1.5-6.6); NEUTROPHILS % (AUTO) 76.5 %; PLT - PLATELET COUNT 259 10^3/uL (130-450); RED BLOOD COUNT 3.57 10^6/uL (4.70-6.10); WHITE BLOOD COUNT 9.9 x10^3/uL (4.8-10.8)
[2022-03-28 13:19] LABS: CALCIUM 9.2 mg/dL (8.5-10.3); CREATININE 2.2 mg/dL (0.6-1.2); POTASSIUM 3.9 mmol/L (3.5-5.0)
== END 2022-03-28 08:42 | disposition home or self-care (01) ==
LOC: LAB.N 08:41
PROVIDERS: ATTEND Physician Assistant Medical
DX: R60.9 Edema, unspecified (principal); D64.9 Anemia, unspecified
CPT/HCPCS: 36415; 80048; 85025

== ENCOUNTER 2022-07-04 08:22 | Outpatient (CLI) | payer MEDICARE, OTHER ==
[2022-07-04 12:15] LABS: BASOPHILS # (AUTO) 0.1 10^3/uL (0.0-0.1); BASOPHILS % (AUTO) 1.1 %; EOSINOPHILS # (AUTO) 0.2 10^3/uL (0.0-0.7); EOSINOPHILS % (AUTO) 2.2 %; HCT - HEMATOCRIT 34.1 % (42.0-52.0); HGB - HEMOGLOBIN 11.1 g/dL (14.0-18.0); LYMPHOCYTES % (AUTO) 13.2 %; MEAN CORPUSCULAR HEMOGLOBIN 33.2 pg (27.0-31.0); MEAN CORPUSCULAR HGB CONC 32.6 g/dL (32.0-36.0); MEAN CORPUSCULAR VOLUME 102.1 fL (80.0-94.0); MEAN PLATELET VOLUME 10.7 fL (7.4-11.4); MONOCYTES # (AUTO) 0.6 10^3/uL (0.0-1.0); MONOCYTES % (AUTO) 7.4 %; NEUTROPHILS # (AUTO) 5.9 10^3/uL (1.5-6.6); NEUTROPHILS % (AUTO) 75.7 %; PLT - PLATELET COUNT 209 10^3/uL (130-450); RED BLOOD COUNT 3.34 10^6/uL (4.70-6.10); RED CELL DISTRIBUTION WIDTH 12.8 % (12.0-15.0); WHITE BLOOD COUNT 7.8 x10^3/uL (4.8-10.8)
[2022-07-04 12:32] LABS: ALBUMIN 3.2 g/dL (3.2-5.5); ALBUMIN/GLOBULIN RATIO 0.9 (1.0-2.2); BILIRUBIN,TOTAL 0.6 mg/dL (0.2-1.0); CALCIUM 9.2 mg/dL (8.5-10.3); CREATININE 2.4 mg/dL (0.6-1.2); POTASSIUM 4.2 mmol/L (3.5-5.0); TOTAL PROTEIN 6.6 g/dL (6.7-8.2)
== END 2022-07-04 08:23 | disposition home or self-care (01) ==
LOC: LAB.N 08:22
PROVIDERS: ATTEND Nurse Practitioner
DX: I10 Essential (primary) hypertension (principal)
CPT/HCPCS: 36415; 80053; 85025

== ENCOUNTER 2022-07-11 07:57 | Outpatient (CLI) | payer MEDICARE, OTHER ==
[2022-07-11 11:57] LABS: BASOPHILS # (AUTO) 0.1 10^3/uL (0.0-0.1); BASOPHILS % (AUTO) 0.8 %; EOSINOPHILS # (AUTO) 0.2 10^3/uL (0.0-0.7); EOSINOPHILS % (AUTO) 2.3 %; HCT - HEMATOCRIT 31.7 % (42.0-52.0); HGB - HEMOGLOBIN 10.4 g/dL (14.0-18.0); LYMPHOCYTES % (AUTO) 11.2 %; MEAN CORPUSCULAR HEMOGLOBIN 33.3 pg (27.0-31.0); MEAN CORPUSCULAR HGB CONC 32.8 g/dL (32.0-36.0); MEAN CORPUSCULAR VOLUME 101.6 fL (80.0-94.0); MEAN PLATELET VOLUME 11.2 fL (7.4-11.4); MONOCYTES # (AUTO) 0.6 10^3/uL (0.0-1.0); NEUTROPHILS % (AUTO) 78.3 %; PLT - PLATELET COUNT 214 10^3/uL (130-450); RED BLOOD COUNT 3.12 10^6/uL (4.70-6.10); RED CELL DISTRIBUTION WIDTH 13.2 % (12.0-15.0)
[2022-07-11 12:35] LABS: CALCIUM 9.1 mg/dL (8.5-10.3); CREATININE 2.5 mg/dL (0.6-1.2); PHOSPHORUS 3.7 mg/dL (2.5-4.6); POTASSIUM 4.4 mmol/L (3.5-5.0)
[2022-07-11 18:27] LABS: CREATININE,URINE 101.6 mg/dL; PROTEIN/CREATININE RATIO,URINE 2.4 (<=0.2)
== END 2022-07-11 07:58 | disposition home or self-care (01) ==
LOC: LAB.N 07:57
PROVIDERS: ATTEND Internal Medicine Nephrology
DX: N05.9 Unspecified nephritic syndrome with unspecified morphologic changes (principal); I50.32 Chronic diastolic (congestive) heart failure; D70.9 Neutropenia, unspecified; D63.1 Anemia in chronic kidney disease; R80.9 Proteinuria, unspecified; N25.81 Secondary hyperparathyroidism of renal origin; E83.30 Disorder of phosphorus metabolism, unspecified
CPT/HCPCS: 36415; 80048; 82570; 83880; 83970; 84100; 84156; 85025

== ENCOUNTER 2022-10-15 09:41 | Emergency (ER) | payer MEDICARE, OTHER ==
[2022-10-15] MEDS ORDERED: TETANUS/DIPHTHERIA/PERTUSSIS 0.5 ML SYRINGE IM ONE (10:03)
--- NOTE | 2022-10-15 10:04 | ED Physician Documentation ---
PD HPI MAJOR TRAUMA - Stated complaint Stated Complaint: GLF - Chief complaint Chief Complaint: Trauma Hd/Nk - History obtained from History obtained from: Patient - Additional information Additional information: 77-year-old gentleman with frequent falls. [place] and fall. He hit his face on the ground with some scrapes. Does not know when his last tetanus shot was. Also injured the right shoulder and has scrapes on both knees. He is supposed to be using a walker but is rarely compliant. He is here with his daughter. PD PAST MEDICAL HISTORY - Past Medical History Cardiovascular: None, Hypertension, High cholesterol Respiratory: Shortness of breath, Sleep apnea, CPAP use Endocrine/Autoimmune: None GI: Chronic constipation : None HEENT: Other Psych: None Musculoskeletal: Osteoarthritis Derm: None - Past Surgical History Past Surgical History: Yes General: Colonoscopy Ortho: Rotator cuff repair - Present Medications Home Medications: Ambulatory Orders Medication Instructions Recorded Confirmed Gabapentin 600 mg PO TID 03/22/17 10/15/22 Tamsulosin [Flomax] 0.4 mg PO DAILY 03/22/17 10/15/22 Acetaminophen [Tylenol Arthritis] 650 mg ORAL Q6HR PRN 10/15/22 10/15/22 Aspirin [Ling] 325 mg PO DAILY 10/15/22 10/15/22 Atorvastatin [Lipitor] 20 mg ORAL HS 10/15/22 10/15/22 Biotin 10,000 mcg PO DAILY 10/15/22 10/15/22 Cholecalciferol [Vitamin D3] 25 mcg PO DAILY 10/15/22 10/15/22 Cyanocobalamin (Vitamin B-12) 1,000 mcg PO DAILY 10/15/22 10/15/22 [Vitamin B12] Diltiazem HCl [Cardizem Cd] 360 mg PO DAILY 10/15/22 10/15/22 Glucosamine/D3/Boswellia Melissa 1 each PO DAILY 10/15/22 10/15/22 [Osteo Bi-Flex Tablet] Krill/Gabriels-3/Dha/Epa/Lipids 1 each PO DAILY 10/15/22 10/15/22 [Krill Oil 350 mg Softgel] Lactobacillus Combination No.4 1 each PO DAILY 10/15/22 10/15/22 [Probiotic] Loratadine [Claritin] 10 mg PO DAILY 10/15/22 10/15/22 Magnesium Citrate 250 mg PO DAILY 10/15/22 10/15/22 Pantoprazole Sodium 20 mg PO BID 10/15/22 10/15/22 Turmeric Root Extract [Turmeric 1,600 mg PO DAILY 10/15/22 10/15/22 Curcumin] Zinc Gluconate [Zinc] 50 mg PO DAILY 10/15/22 10/15/22 amLODIPine [Norvasc] 5 mg PO BID 10/15/22 10/15/22 - Allergies Allergies/Adverse Reactions: Allergies Allergy/AdvReac Type Severity Reaction Status Date / Time chlorzoxazone Allergy Anxiety Verified 10/15/22 09:49 [From [facility]] - Social History Does the pt smoke?: No Smoking Status: Never smoker Does the pt drink ETOH?: Yes Does the pt have substance abuse?: No - Immunizations Immunizations are current?: Yes - POLST Patient has POLST: No PD ED PE NORMAL - Vitals Vital signs reviewed: Yes - General General: Alert and oriented X 3, No acute distress - HEENT HEENT: PERRL, EOMI, Other (Scrapes on the forehead, the bridge of the nose, and right infraorbital area. No facial bony tenderness.) - Neck Neck: No bony TTP - Cardiac Cardiac: RRR, No murmur - Respiratory Respiratory: No respiratory distress, Clear bilaterally - Abdomen Abdomen: Normal bowel sounds, Soft - Back Back: Other (Mild tenderness of the mid to low lumbar spine) - Derm Derm: Normal color, Warm and dry - Extremities Extremities: Other (Some scrapes on the knees but no tenderness or limited range of motion of the knees, hips, or feet. He is mildly tender over the right shoulder and only able to abduct to about 90 degrees.) - Neuro Neuro: Alert and oriented X 3, Normal speech Results - Vitals Vitals: Vital Signs - 24 hr 10/15/22 09:45 Temperature 36.2 C L Heart Rate 87 Respiratory 16 Rate Blood Pressure 151/69 H O2 Saturation 97 Oxygen O2 Source Room air - Rads (name of study) CT of the head, cervical spine, and lumbar spine are negative for traumatic injuries. Thyroid ultrasound recommended. Relevant Findings:: Final report received, EMP independent interpretation of test Right shoulder x-ray is unremarkable Relevant Findings:: Final report received, EMP independent interpretation of test PD Medical Decision Making - ED course ED course: 77-year-old gentleman frequent falls had a fall yesterday. He is accompanied by his daughter for evaluation of that and eventually his is also at the bedside. It came out that he is probably drinking quite a bit, 2 beers a day and then 3 glasses of rum a day, the glasses described or not a single drink, but significantly more. This is probably contributing to his chronic disequilibrium and frequent falls and he was advised to cut back on drinking, use his walker, and follow-up with his primary care physician. The thyroid abnormality on CT was also discussed with patient and family and follow-up recommended. Departure - Departure Disposition: 01 Home, Self Care Clinical Impression: Frequent falls, Thyroid mass Facial abrasion Qualifiers: Encounter type: initial encounter Qualified Code(s): S00.81XA - Abrasion of other part of head, initial encounter Back injury Qualifiers: Encounter type: initial encounter Qualified Code(s): S39.92XA - Unspecified injury of lower back, initial encounter Right shoulder strain Qualifiers: Encounter type: initial encounter Qualified Code(s): S46.911A - Strain of unspecified muscle, fascia and tendon at shoulder and upper arm level, right arm, initial encounter Condition: Good Record reviewed to determine appropriate education?: Yes Instructions: ED Low Back Pain Injury, ED Head Injury Closed Follow-Up: Darline Carrasco PA-C [Provider Admit Priv/Credential] - Comments: For the abrasions on your face and knees, soap and water is fine, but you should also apply bacitracin ointment which is available [id number]. Follow-up with EMILY Carrasco. Use your walker and decrease alcohol use. Also, as discussed there was a thyroid cyst or goiter on the CAT scan of your neck. Discussed this with EMILY Carrasco as well. She may recommend follow-up ultrasound.
--- OUTSIDE RECORDS SUMMARY | 2022-10-15 10:45 | EXTERNAL MEDICAL SUMMARY RPT | Continuity of Care Document ---
Author Name Unknown Address [address] [place] [address] Phone Organization [facility] Address [address] [place] [phone] Phone Problems date description facility 2022-08-08 08:55 Chest pain, unspecified [facility] Results/Labs test date author facility value unit interpretation Result panel 1 (unknown) (no date) (unknown) (unknown) (no value) (units unknown) (unknown) (unknown) (no date) (unknown) (unknown) (EF post (units unknown) (unknown) (unknown) (no date) (unknown) (unknown) 0. No (units unknown) (unknown) (unknown) (no date) (unknown) (unknown) 08/08/22 (units unknown) (unknown) (unknown) (no date) (unknown) (unknown) 1) There is a mildly intense fixed apical defect that is probably apical (units unknown) (unknown) (unknown) (no date) (unknown) (unknown) [address] (units unknown) (unknown) (unknown) (no date) (unknown) (unknown) 148mL. (units unknown) (unknown) (unknown) (no date) (unknown) (unknown) 2) Enlarged left ventricle with normal wall motion and normal systolic function (units unknown) (unknown) (unknown) (no date) (unknown) (unknown) 3) No diagnostic ST changes with lexiscan. (units unknown) (unknown) (unknown) (no date) (unknown) (unknown) 4) No angina during the study. (units unknown) (unknown) (unknown) (no date) (unknown) (unknown) 5) No prior nuclear stress test available for comparison. (units unknown) (unknown) (unknown) (no date) (unknown) (unknown) : [id number] (units unknown) (unknown) (unknown) (no date) (unknown) (unknown) A pharmacologic stre ss test was performed under the supervision of an attending (units unknown) (unknown) (unknown) (no date) (unknown) (unknown) Accession Number: [id number] (units unknown) (unknown) (unknown) (no date) (unknown) (unknown) Age/Sex: 77 / M Date of Service: (units unknown) (unknown) (unknown) (no date) (unknown) (unknown) Aminophylline: none (units unknown) (unknown) (unknown) (no date) (unknown) (unknown) DAWIT Zambrano [id number] (units unknown) (unknown) (unknown) (no date) (unknown) (unknown) Approved by: Maryam Dwyer MD on 08/08/2022 at 16:57 (units unknown) (unknown) (unknown) (no date) (unknown) (unknown) CARDIAC STRESS: (units unknown) (unknown) (unknown) (no date) (unknown) (unknown) COMPARISON: None. (units unknown) (unknown) (unknown) (no date) (unknown) (unknown) : 1945 Acct:[id number] (units unknown) (unknown) (unknown) (no date) (unknown) (unknown) Dictated by: Maryam Dwyer MD on 08/08/2022 at 16:53 (units unknown) (unknown) (unknown) (no date) (unknown) (unknown) EKG: No diagnostic changes of ischemia; no ectopy. (units unknown) (unknown) (unknown) (no date) (unknown) (unknown) FINDINGS: (units unknown) (unknown) (unknown) (no date) (unknown) (unknown) Hemodynamic data: Th ere is normal blood pressure and heart rate response to (units unknown) (unknown) (unknown) (no date) (unknown) (unknown) IMPRESSION: Low risk , probably normal pharmaceutical nuclear stress test (units unknown) (unknown) (unknown) (no date) (unknown) (unknown) INDICATIONS: Chest pain (units unknown) (unknown) (unknown) (no date) (unknown) (unknown) [facility] (units unknown) (unknown) (unknown) (no date) (unknown) (unknown) Left ventricle function: Gated images demonstrate normal left ventricular wall (units unknown) (unknown) (unknown) (no date) (unknown) (unknown) Left ventricle stres s ejection fraction is 66%; normal range is above 45%. (units unknown) (unknown) (unknown) (no date) (unknown) (unknown) Loc: [facility] (units unknown) (unknown) (unknown) (no date) (unknown) (unknown) Myocardial perfusion : There is a mildly intense fixed apical defect that is (units unknown) (unknown) (unknown) (no date) (unknown) (unknown) Nuclear Medicine Report (units unknown) (unknown) (unknown) (no date) (unknown) (unknown) Ordering Provider: Darline Carrasco P.A-C (units unknown) (unknown) (unknown) (no date) (unknown) (unknown) PROCEDURE: NM YAMILEX PE RF SPECT R+S PHARM (units unknown) (unknown) (unknown) (no date) (unknown) (unknown) Patient: Mark Anthony Knowles MR# (units unknown) (unknown) (unknown) (no date) (unknown) (unknown) Procedure: NM yamilex pe rf SPECT R+S pharm (units unknown) (unknown) (unknown) (no date) (unknown) (unknown) RADIOPHARMACEUTICAL: 11.9 mCi Tc-99m tetrafosmin IV at rest and 24.8 mCi Tc-99m (units unknown) (unknown) (unknown) (no date) (unknown) (unknown) Raw data: There is g ood myocardial uptake of radiotracer. No significant (units unknown) (unknown) (unknown) (no date) (unknown) (unknown) Rest and pharmacological stress myocardial perfusion SPECT with gated imaging (units unknown) (unknown) (unknown) (no date) (unknown) (unknown) SPECT images were obtained. SPECT myocardial perfusion images were displayed in (units unknown) (unknown) (unknown) (no date) (unknown) (unknown) Signed (units unknown) (unknown) (unknown) (no date) (unknown) (unknown) Symptoms: The patien t denied anginal chest pain. (units unknown) (unknown) (unknown) (no date) (unknown) (unknown) TECHNIQUE: Radiopharmaceutical was injected at peak stress test, and also at (units unknown) (unknown) (unknown) (no date) (unknown) (unknown) and (units unknown) (unknown) (unknown) (no date) (unknown) (unknown) apical thinning artifact but small prior non-transmural KS can't be excluded. No (units unknown) (unknown) (unknown) (no date) (unknown) (unknown) artifact but small prior non-transmural KS can't be excluded. No ischemia. SSS (units unknown) (unknown) (unknown) (no date) (unknown) (unknown) artifacts. (units unknown) (unknown) (unknown) (no date) (unknown) (unknown) axis, horizontal gordon g axis, and vertical long axis views. Gated images were (units unknown) (unknown) (unknown) (no date) (unknown) (unknown) dilation; TID (units unknown) (unknown) (unknown) (no date) (unknown) (unknown) ejection fraction (units unknown) (unknown) (unknown) (no date) (unknown) (unknown) is 0.93 (normal less than 1.3). Left ventricle resting end diastolic volume is (units unknown) (unknown) (unknown) (no date) (unknown) (unknown) ischemia. SSS 0. No prone imaging due to limited mobility. (units unknown) (unknown) (unknown) (no date) (unknown) (unknown) motion (units unknown) (unknown) (unknown) (no date) (unknown) (unknown) performed. (units unknown) (unknown) (unknown) (no date) (unknown) (unknown) pharmacologic stress. (units unknown) (unknown) (unknown) (no date) (unknown) (unknown) probably (units unknown) (unknown) (unknown) (no date) (unknown) (unknown) prone imaging due to limited mobility. (units unknown) (unknown) (unknown) (no date) (unknown) (unknown) rest. (units unknown) (unknown) (unknown) (no date) (unknown) (unknown) reviewed (units unknown) (unknown) (unknown) (no date) (unknown) (unknown) short (units unknown) (unknown) (unknown) (no date) (unknown) (unknown) staff, (units unknown) (unknown) (unknown) (no date) (unknown) (unknown) stress 66%). (units unknown) (unknown) (unknown) (no date) (unknown) (unknown) tetrafosmin IV at pe ak effect of pharmacological stress. [id number]-[id number] was (units unknown) (unknown) (unknown) (no date) (unknown) (unknown) thickening. No segmental wall motion abnormalities. No transient ischemic (units unknown) (unknown) (unknown) (no date) (unknown) (unknown) thinning (units unknown) (unknown) (unknown) (no date) (unknown) (unknown) using [employer] software. (units unknown) (unknown) (unknown) (no date) (unknown) (unknown) using an infusion of lexiscan 0.4mg IV X1. (units unknown) (unknown)
--- NOTE | 2022-10-15 10:59 | XRAY Report ---
PROCEDURE: Shoulder 3 View RT INDICATIONS: fell, hit head, back pain/shoulder pain TECHNIQUE: 3 views of the shoulder were acquired. COMPARISON: None. FINDINGS: Bones: No fractures or dislocations. No suspicious bony lesions. Visualized ribs appear intact. Soft tissues: No suspicious soft tissue calcifications. IMPRESSION: No acute bony abnormality. If pain persists with conservative management, consider repeat radiographs in 10-14 days or cross-sectional imaging. Reviewed by: Niranjan Goldberg MD on 10/15/2022 10:58 AM PDT Approved by: Niranjan Goldberg MD on 10/15/2022 10:58 AM PDT Station ID: [id number]
--- NOTE | 2022-10-15 11:40 | CT Report ---
PROCEDURE: HEAD WO INDICATIONS: fell, hit head, back pain/shoulder pain TECHNIQUE: Noncontrast 4.5 mm thick angled axial sections acquired from the foramen magnum to the vertex. For r adiation dose reduction, the following was used: automated exposure control, adjustment of mA and/or kV according to patient size. COMPARISON: CT head without, 11/09/1014. FINDINGS: Image quality: Excellent. CSF spaces: Basal cisterns are patent. No extra-axial fluid collections. Ventricles are prominent in size but symmetrical in shape. Brain: No midline shift. No intracranial masses or hemorrhage. Moderate cerebral volume loss and p eriventricular white matter chronic small vessel ischemic changes. Hale-white matter interface is nor mal. Skull and face: Calvarium and visualized facial bones are intact, without suspicious lesions. Sinuses: Visualized sinuses and mastoids are clear. IMPRESSION: 1. No acute intracranial abnormality. 2. Volume loss and periventricular white matter chronic small vessel ischemic changes. Reviewed by: Lori Reza MD on 10/15/2022 11:39 AM PDT Approved by: Lori Reza MD on 10/15/2022 11:39 AM PDT Station ID: [id number]
--- NOTE | 2022-10-15 11:43 | CT Report ---
PROCEDURE: CERVICAL SPINE WO INDICATIONS: fell, hit head, back pain/shoulder pain TECHNIQUE: Noncontrast 3 mm thick sections acquired from the skull base to the T4 level. Sagittal and coronal r eformats were then constructed. For radiation dose reduction, the following was used: automated exp osure control, adjustment of mA and/or kV according to patient size. COMPARISON: None. FINDINGS: Image quality: Excellent. Bones: No fractures or dislocations. Degenerative disc disease, moderate at C6-C7, mild at other lev els. There is bilateral facet arthropathy, severe at C3 and C3-C4 on the left. Visualized superior ri bs are intact. Soft tissues: Prevertebral soft tissues are normal in thickness. No paravertebral hematomas. No ap ical pneumothoraces. The thyroid gland is enlarged. There is a large substernal component of the left lower lobe. IMPRESSION: 1. No acute cervical spine injuries. 2. Degenerative changes in cervical spine. 3. Enlarged thyroid gland most likely secondary to goiter. Please correlate with thyroid function bill ts. If clinically indicated, thyroid ultrasound is suggested for further evaluation. Reviewed by: Lori Reza MD on 10/15/2022 11:42 AM PDT Approved by: Lori Reza MD on 10/15/2022 11:42 AM PDT Station ID: [id number]
--- NOTE | 2022-10-15 11:47 | CT Report ---
PROCEDURE: LUMBAR SPINE WO INDICATIONS: fell, hit head, back pain/shoulder pain TECHNIQUE: Noncontrast 3 mm thick sections acquired from the T12 level to the sacrum. Sagittal and coronal refo rmats were constructed. For radiation dose reduction, the following was used: automated exposure co ntrol, adjustment of mA and/or kV according to patient size. COMPARISON: None. FINDINGS: Image quality: Excellent. Bones: There is normal bony alignment. Mild levoscoliosis. No acute vertebral body compression frac tures. No suspicious lytic or blastic bony lesions. Central spinal caliber is of normal overall trino iber. No pars defects. There is diffuse degenerative disc disease in lumbar spine, severe at L2-L3, L3-L4 and L4-L5. Bilateral facet arthropathy, most pronounced and severe at L5-S1 on the right. There is moderate central canal stenosis at L2-L3 and L3-L4, and mild central canal stenosis at L5 L5 . Soft tissues: No retroperitoneal masses or hematomas. Visualized aorta is normal in caliber. Sever e atherosclerotic calcifications. IMPRESSION: 1. No acute osseous abnormality. 2. Degenerative disc and facet disease in lumbar spine. Reviewed by: Lori Reza MD on 10/15/2022 11:46 AM PDT Approved by: Lori Reza MD on 10/15/2022 11:46 AM PDT Station ID: [id number]
[2022-10-15 12:14] VITALS: BP 170/78
== END 2022-10-15 12:29 | disposition home or self-care (01) ==
LOC: ED 09:41
DX: S46.911A Strain of unspecified muscle, fascia and tendon at shoulder and upper arm level, right arm, initial encounter (principal); S00.81XA Abrasion of other part of head, initial encounter; S39.92XA Unspecified injury of lower back, initial encounter; W18.30XA Fall on same level, unspecified, initial encounter; Z91.81 History of falling; Y93.31 Activity, mountain climbing, rock climbing and wall climbing; Y92.828 Other wilderness area as the place of occurrence of the external cause; E07.9 Disorder of thyroid, unspecified; I10 Essential (primary) hypertension; E78.00 Pure hypercholesterolemia, unspecified; Z79.899 Other long term (current) drug therapy; Z79.82 Long term (current) use of aspirin; Z23 Encounter for immunization
CPT/HCPCS: 90471; 99283; 99284

== ENCOUNTER 2022-11-05 09:19 | Outpatient (CLI) | payer MEDICARE, OTHER ==
[2022-11-05 09:32] LABS: BASOPHILS # (AUTO) 0.1 10^3/uL (0.0-0.1); BASOPHILS % (AUTO) 1.1 %; EOSINOPHILS # (AUTO) 0.1 10^3/uL (0.0-0.7); EOSINOPHILS % (AUTO) 1.1 %; HCT - HEMATOCRIT 37.9 % (42.0-52.0); HGB - HEMOGLOBIN 12.4 g/dL (14.0-18.0); LYMPHOCYTES # (AUTO) 1.7 10^3/uL (1.5-3.5); LYMPHOCYTES % (AUTO) 18.5 %; MEAN CORPUSCULAR HEMOGLOBIN 32.4 pg (27.0-31.0); MEAN CORPUSCULAR HGB CONC 32.7 g/dL (32.0-36.0); MEAN PLATELET VOLUME 10.6 fL (7.4-11.4); MONOCYTES # (AUTO) 0.7 10^3/uL (0.0-1.0); MONOCYTES % (AUTO) 8.3 %; NEUTROPHILS # (AUTO) 6.3 10^3/uL (1.5-6.6); NEUTROPHILS % (AUTO) 70.8 %; PLT - PLATELET COUNT 238 10^3/uL (130-450); RED BLOOD COUNT 3.83 10^6/uL (4.70-6.10); RED CELL DISTRIBUTION WIDTH 12.2 % (12.0-15.0); WHITE BLOOD COUNT 8.9 x10^3/uL (4.8-10.8)
[2022-11-05 09:44] LABS: ALBUMIN 3.4 g/dL (3.2-5.5); ALBUMIN/GLOBULIN RATIO 0.9 (1.0-2.2); BILIRUBIN,TOTAL 0.6 mg/dL (0.2-1.0); CALCIUM 9.1 mg/dL (8.5-10.3); CREATININE 2.4 mg/dL (0.6-1.2); POTASSIUM 4.1 mmol/L (3.5-5.0); TOTAL PROTEIN 7.4 g/dL (6.7-8.2)
[2022-11-05 10:01] LABS: THYROID STIMULATING HORMONE 0.28 uIU/mL (0.34-5.60)
[2022-11-05 10:45] LABS: FREE T4 (FREE THYROXINE) 0.96 ng/dL (0.58-1.64)
== END 2022-11-05 09:20 | disposition home or self-care (01) ==
LOC: LAB 09:19
PROVIDERS: ATTEND Physician Assistant Medical
DX: R63.4 Abnormal weight loss (principal)
CPT/HCPCS: 36415; 80053; 84439; 84443; 85025

== ENCOUNTER 2022-11-13 10:25 | Outpatient (CLI) | payer MEDICARE, OTHER ==
[2022-11-13] MEDS ORDERED: iohexoL-300 100 ML VIAL ONE (10:41)
[2022-11-13 10:52] LABS: CREATININE 2.4 mg/dL (0.6-1.2)
--- NOTE | 2022-11-13 16:12 | Ultrasound Report ---
PROCEDURE: Head or Neck Soft Tissue INDICATIONS: THYROID NODULE TECHNIQUE: Real-time scanning was performed of the thyroid gland, with image documentation. COMPARISON: Chest imaging same-day FINDINGS: Right thyroid measures 6.4 x 2.4 x 2.9 cm. Left thyroid measures 7 x 3.3 x 3.1 cm. Isthmus measures 2 .7 cm. Overall thyroid is heterogeneous and enlarged. Right superior nodule 1 measures 8 x 8 x 5 mm. No dedicated follow-up is necessary. Right mid nodule 2 measures 14 x 13 x 15 mm. It is solid and isoechoic. TR 3. Follow-up recommended. IMPRESSION: Thyroid nodules as above. Enlarged, heterogeneous goitrous thyroid, particularly on the left. ACR TI-RADS definitions and recommendations: TI-RADS 1 (benign): 0 points. FNA not needed. TI-RADS 2 (not suspicious): 2 points. FNA not needed. TI-RADS 3 (mildly suspicious): 3 points. "FNA if 2.5 cm or larger, follow up if 1.5 cm or larger (at 1, 3, and 5 years). TI-RADS 4 (moderately suspicious): 4-6 points. "FNA if 1.5 cm or larger, follow up if 1 cm or larger (at 1, 2, 3, and 5 years). TI-RADS 5 (highly suspicious): 7 points or more. "FNA if 1 cm or larger, follow up if 0.5 cm or larger (every year for 5 years). Reviewed by: Sixto Duran MD on 11/13/2022 4:11 PM PDT Approved by: Sixto Duran MD on 11/13/2022 4:11 PM PDT Station ID: [id number]
--- NOTE | 2022-11-13 16:58 | CT Report ---
PROCEDURE: CHEST WO INDICATIONS: ABN WEIGHT LOSS TECHNIQUE: Noncontrast 1mm axial images were acquired from the pulmonary apices to the posterior costophrenic an gles. Axial 5 mm soft tissue kernel reconstructions were performed as well as 8 mm axial MIP and cor onal and sagittal 5 mm reformations. For radiation dose reduction, the following was used: automate d exposure control, adjustment of mA and/or kV according to patient size. COMPARISON: Same-day CT abdomen and pelvis without contrast. CT cervical spine and 10/15/2022. FINDINGS: Image quality: Excellent. Lungs and pleura: No consolidation. No pleural effusions. No pneumothorax. Left upper lobe pulmonary nodule measuring 0.5 cm, (3). Left lung base calcified granuloma. Mild emphysematous change. Mediastinum: Heart size is normal. Three-vessel coronary artery calcifications. No pericardial effusi on. No large vessel abnormality. No mediastinal adenopathy by size criteria. Chest wall and lower neck: Thyroid is enlarged. Rightward deviation of the trachea due to enlarged th yroid. No axillary or supraclavicular adenopathy by size. Bones: No aggressive osseous abnormality. Prior left-sided rib fracture. Upper Abdomen: Small liver cysts. No adrenal nodule. Kidneys appear atrophic. Small right renal cyst. Multiple left renal cyst.. IMPRESSION: 1. Left upper lobe pulmonary nodule measuring 0.5 cm. Low suspicion. Consider follow-up CT chest in 6 -12 months. 2. No adenopathy. Reviewed by: Jerry Rios MD on 11/13/2022 4:57 PM PDT Approved by: Jerry Rios MD on 11/13/2022 4:57 PM PDT Station ID: [id number]
--- NOTE | 2022-11-13 17:09 | CT Report ---
PROCEDURE: ABDOMEN/PELVIS WO INDICATIONS: ABN WEIGHT LOSS TECHNIQUE: A CT scan of the abdomen and pelvis was performed without the use of intravenous contrast. Oral contr ast was administered. Images were recorded and evaluated at appropriate window settings. Reformats: coronal and sagittal. For radiation dose reduction, the following was used: automated exposure contro l, adjustment of mA and/or kV according to patient size. COMPARISON: Same day CT chest. CT abdomen pelvis 03/22/2017, 11/09/2014. FINDINGS: Image quality: Excellent. Evaluation of the solid parenchymal organs is limited without IV contrast. Lung bases and heart: Please see separately dictated same-day CT chest. Liver: Small well-circumscribed hepatic hypodensities. -Segment 8 measuring at 2.1 cm, (08/19), previously 1.8 cm in 2014. -Segment 7 hypodensity measuring 1.2 cm, (08/18), not previously seen. Gallbladder and biliary tree: No radiopaque stones or wall thickening. No biliary dilation. Spleen: No splenomegaly. Pancreas: No pancreatic ductal dilation. Adrenals: No adrenal nodule. Kidneys and ureters: No hydronephrosis. Kidneys are atrophic. Bilateral low-density renal cysts. Some of which are increased in size compared to 2017. Bowel and peritoneum: No bowel distension. No pathologic free fluid. Is not dilated. Lymph nodes: No central or retroperitoneal adenopathy. Vessels: No infrarenal aortic aneurysm. Circumferential calcified atherosclerotic plaque. PELVIS Reproductive organs: Unremarkable. Bladder: No wall thickness, accounting for underdistention. Pelvic lymph nodes: No pelvic adenopathy by size criteria. Bones: No aggressive osseous abnormality. Multilevel DDD. Other: Tiny fat-containing umbilical hernia. No inguinal hernia. IMPRESSION: Evaluation is somewhat limited without IV contrast. 1. Small well-circumscribed hepatic hypodensities. Favor small benign cysts. However, one is new comp ared to 2017 and the other is increased in size. MRI would be helpful for further evaluation. Prefera sloane with contrast. 2. Atrophic kidneys. Multiple renal cysts. 3. No adenopathy. Reviewed by: Jerry Rios MD on 11/13/2022 5:08 PM PDT Approved by: Jerry Riso MD on 11/13/2022 5:08 PM PDT Station ID: [id number]
== END 2022-11-13 10:26 | disposition home or self-care (01) ==
LOC: DI 10:25
PROVIDERS: ATTEND Physician Assistant Medical
DX: E04.2 Nontoxic multinodular goiter (principal); R16.0 Hepatomegaly, not elsewhere classified; N28.1 Cyst of kidney, acquired; N26.1 Atrophy of kidney (terminal)
CPT/HCPCS: 36415; 82565

== ENCOUNTER 2022-12-17 12:28 | Outpatient (CLI) | payer MEDICARE, OTHER ==
[2022-12-17 13:09] LABS: CREATININE 2.1 mg/dL (0.6-1.3)
--- NOTE | 2022-12-17 15:20 | MRI Report ---
PROCEDURE: ABDOMEN W/WO INDICATIONS: LIVER LESION CONTRAST: gdaavist 6.1ml TECHNIQUE: Coronal ultra fast SE, axial 2D spoiled GE in- and [id number]; axial breath-hold T2 fast SE. Dynam ic axial ultra fast GE during the administration of contrast; post-contrast coronal ultra fast GE or 2D spoiled GE with fat saturation from the hepatic dome to the iliac crests. Optional diffusion weig hted imaging and ADC may be performed. COMPARISON: CT from 11/13/2022 FINDINGS: Image quality: Motion artifact is present. Lower chest: No basal effusions. Lungs are not well evaluated on MRI. No hiatal hernia. Normal heart size. Solid organs: Liver cysts are present. No suspicious focal hepatic lesion. Gallbladder is distended. No surrounding inflammatory changes. No pathologic dilation of the biliary tree or pancreatic duct. No splenomegaly. No adrenal nodules. Bilateral renal cortical scarring. Bilateral renal cysts. Vessels and lymph nodes: Atherosclerotic disease. The main portal vein is patent. No abdominal aortic aneurysm. No pathologic adenopathy by size criteria. A prominent portacaval lymph nodes again seen. Bowel and peritoneum: No evidence of small bowel obstruction or pathologic ascites. No intra-abdomina l abscess. Body wall: Unremarkable Bones: Degenerative changes, without acute or suspicious osseous finding. IMPRESSION: No suspicious solid hepatic lesion identified. Numerous hepatic cysts are present. Distended gallbladder, without surrounding inflammatory changes or biliary ductal dilation. Other findings as above. Reviewed by: Sixto Duran MD on 12/17/2022 3:19 PM PDT Approved by: Sixto Duran MD on 12/17/2022 3:19 PM PDT Station ID: [id number]
== END 2022-12-17 12:29 | disposition home or self-care (01) ==
LOC: LAB 12:28
PROVIDERS: ATTEND Physician Assistant Medical
DX: K76.89 Other specified diseases of liver (principal); K82.8 Other specified diseases of gallbladder; N28.1 Cyst of kidney, acquired; I70.90 Unspecified atherosclerosis
CPT/HCPCS: 36415; 74183; 82565; A9585

== ENCOUNTER 2023-01-01 08:00 | Outpatient (CLI) | payer MEDICARE, OTHER | END 2023-01-01 23:59 | disposition home or self-care (01) | LOC: LAB.WCP 08:00 | PROVIDERS: ATTEND Physician Assistant Medical | DX: L89.309 Pressure ulcer of unspecified buttock, unspecified stage (principal) | CPT/HCPCS: 87070; 87181; 87205 ==

== ENCOUNTER 2023-02-12 08:27 | Outpatient (CLI) | payer MEDICARE, OTHER ==
[2023-02-12 09:03] LABS: ALBUMIN 3.6 g/dL (3.2-5.5); ALBUMIN/GLOBULIN RATIO 1.2 (1.0-2.2); ALKALINE PHOSPHATASE 123 IU/L (42-121); ALT ALANINE AMINOTRANSFERASE 10 IU/L (10-60); AST ASPARTATE AMINOTRANSFERASE 22 IU/L (10-42); BILIRUBIN,TOTAL 0.4 mg/dL (0.2-1.0); BUN - BLOOD UREA NITROGEN 23 mg/dL (6-20); CALCIUM 9.4 mg/dL (8.5-10.3); CARBON DIOXIDE - CO2 27 mmol/L (21-32); CHLORIDE 105 mmol/L (101-111); CHOL/HDL RATIO 2.5 (<5.0); CHOLESTEROL 140 mg/dL; CREATININE 2.4 mg/dL (0.6-1.3); GFR - MDRD 26 (>89); GLUCOSE 93 mg/dL (74-104); HDL CHOLESTEROL 57 mg/dL; LDL CHOLESTEROL,CALCULATED 57 mg/dL; POTASSIUM 4.4 mmol/L (3.5-4.5); SODIUM 139 mmol/L (135-145); TOTAL PROTEIN 6.5 g/dL (6.4-8.9); TRIGLYCERIDES 129 mg/dL (48-352); VLDL CHOLESTEROL 26 mg/dL
== END 2023-02-12 08:28 | disposition home or self-care (01) ==
LOC: LAB 08:27
PROVIDERS: ATTEND Physician Assistant Medical
DX: E78.5 Hyperlipidemia, unspecified (principal)
CPT/HCPCS: 36415; 80053; 80061; 83721

== ENCOUNTER 2023-03-15 07:52 | Outpatient (CLI) | payer MEDICARE, OTHER ==
--- NOTE | 2023-03-15 16:48 | MRI Report ---
PROCEDURE: LUMBAR SPINE WO INDICATIONS: LOW BACK PAIN TECHNIQUE: Noncontrast sagittal T1 spin echo and T2 fast echo, sagittal STIR, axial T1 and T2 fast spin echo thr ough the lumbar spine. In cases with scoliosis, additional coronal T2 fast spin echo may be performe d. COMPARISON: CT lumbar spine 10/15/2022 FINDINGS: Image quality: Excellent. Alignment and Curvature: There is trace retrolisthesis of L2 on L3, L3 on L4, L4 on L5.. Bone Marrow: Marrow is of normal overall signal. Reactive endplate changes are present at L2-3, L3- 4. No acute vertebral body compression fractures. Spinal Cord: Conus medullaris terminates at the L1 level. Visualized cord demonstrates normal signa l and size. Paraspinous Soft Tissues: No paravertebral masses. Bilateral simple renal cysts are present. Discs Multilevel moderate to severe disc desiccation most significant at L2-3 through L4-5. T12-L1: No disc bulge, spinal stenosis or foraminal narrowing. L1-L2: Minimal disc bulge without spinal stenosis or foraminal narrowing. Facet and ligamentum fla vum hypertrophy are present. L2-L3: Mild disc bulge with posterior central/left paracentral protrusion with superimposed extrus ion. There is moderate to severe left and moderate right foraminal narrowing with facet and ligamentu m flavum hypertrophy. There is significant compromise of the lateral recess on the left secondary to extrusion. L3-L4: Mild disc bulge with mild spinal stenosis. Severe right and moderate to severe left foramina l narrowing with facet and ligamentum flavum hypertrophy. L4-L5: Mild disc bulge without spinal stenosis. Severe right and mild left foraminal narrowing with mild appearance of right L4 nerve root compression. Facet and ligamentum flavum hypertrophy are pres ent. L5-S1: Mild disc bulge without spinal stenosis. Severe bilateral foraminal narrowing, left greater than right with flattening of the exiting L5 nerve roots. IMPRESSION: Multilevel degenerative changes. Prominent disc protrusion with extrusion at L2-3 as described above. Prominent foraminal narrowing at L4-5 and L5-S1 demonstrating compression of exiting nerve roots. Reviewed by: Daisy Abarca MD on 03/15/2023 4:47 PM PST Approved by: Daisy Abarca MD on 03/15/2023 4:47 PM PST Station ID: [id number]
== END 2023-03-15 07:53 | disposition home or self-care (01) ==
LOC: DI 07:52
PROVIDERS: ATTEND Physician Assistant Medical
DX: M51.26 Other intervertebral disc displacement, lumbar region (principal); M47.26 Other spondylosis with radiculopathy, lumbar region; M48.061 Spinal stenosis, lumbar region without neurogenic claudication; M51.17 Intervertebral disc disorders with radiculopathy, lumbosacral region; M48.07 Spinal stenosis, lumbosacral region

== ENCOUNTER 2023-10-10 08:14 | Outpatient (CLI) | payer MEDICARE, OTHER ==
[2023-10-10 08:34] LABS: BASOPHILS # (AUTO) 0.1 10^3/uL (0.0-0.1); BASOPHILS % (AUTO) 0.7 %; EOSINOPHILS % (AUTO) 0.3 %; HCT - HEMATOCRIT 33.4 % (42.0-52.0); HGB - HEMOGLOBIN 11.3 g/dL (14.0-18.0); LYMPHOCYTES % (AUTO) 14.1 %; MEAN CORPUSCULAR HEMOGLOBIN 34.2 pg (27.0-31.0); MEAN CORPUSCULAR HGB CONC 33.8 g/dL (32.0-36.0); MEAN CORPUSCULAR VOLUME 101.2 fL (80.0-94.0); MEAN PLATELET VOLUME 9.9 fL (7.4-11.4); MONOCYTES # (AUTO) 0.5 10^3/uL (0.0-1.0); MONOCYTES % (AUTO) 6.7 %; NEUTROPHILS # (AUTO) 5.7 10^3/uL (1.5-6.6); NEUTROPHILS % (AUTO) 77.7 %; PLT - PLATELET COUNT 240 10^3/uL (130-450); RED CELL DISTRIBUTION WIDTH 13.2 % (12.0-15.0); WHITE BLOOD COUNT 7.3 x10^3/uL (4.8-10.8)
[2023-10-10 08:47] LABS: ALBUMIN 3.6 g/dL (3.2-5.5); ALBUMIN/GLOBULIN RATIO 1.2 (1.0-2.2); ALKALINE PHOSPHATASE 195 IU/L (42-121); ALT ALANINE AMINOTRANSFERASE 19 IU/L (10-60); AST ASPARTATE AMINOTRANSFERASE 35 IU/L (10-42); BILIRUBIN,TOTAL 0.7 mg/dL (0.2-1.0); BUN - BLOOD UREA NITROGEN 24 mg/dL (6-20); CALCIUM 9.8 mg/dL (8.5-10.3); CARBON DIOXIDE - CO2 26 mmol/L (21-32); CHLORIDE 103 mmol/L (101-111); CHOL/HDL RATIO 1.7 (<5.0); CHOLESTEROL 160 mg/dL; CREATININE 2.1 mg/dL (0.6-1.3); GFR - MDRD 31 (>89); GLUCOSE 90 mg/dL (74-104); HDL CHOLESTEROL 96 mg/dL; LDL CHOLESTEROL,CALCULATED 43 mg/dL; LDL/HDL RATIO 0.4 (<3.6); POTASSIUM 3.7 mmol/L (3.5-4.5); SODIUM 138 mmol/L (135-145); TOTAL PROTEIN 6.5 g/dL (6.4-8.9); TRIGLYCERIDES 106 mg/dL (48-352); VLDL CHOLESTEROL 21 mg/dL
[2023-10-10 09:01] LABS: THYROID STIMULATING HORMONE 0.57 uIU/mL (0.34-5.60)
== END 2023-10-10 08:15 | disposition home or self-care (01) ==
LOC: LAB 08:14
PROVIDERS: ATTEND Physician Assistant Medical
DX: E78.5 Hyperlipidemia, unspecified (principal); R41.3 Other amnesia; Z12.5 Encounter for screening for malignant neoplasm of prostate; E04.1 Nontoxic single thyroid nodule; D64.9 Anemia, unspecified
CPT/HCPCS: 36415; 80053; 80061; 82607; 84443; 85025; G0103; 83721; 84153

== ENCOUNTER 2023-10-12 12:35 | Outpatient (CLI) | payer MEDICARE, OTHER | END 2023-10-12 23:59 | disposition EMS.NT | LOC: EMS 12:35 | DX: Z03.89 Encounter for observation for other suspected diseases and conditions ruled out (principal) ==

== ENCOUNTER 2023-10-22 07:36 | Outpatient (CLI) | payer MEDICARE, OTHER ==
[2023-10-22] MEDS ORDERED: GADOTERATE MEGLUMINE 7.5 MMOL/15 ML VIAL ONE (08:15)
--- NOTE | 2023-10-22 11:36 | MRI Report ---
PROCEDURE: MRCP W/WO INDICATIONS: ELEVATED AIK PHOS, UNINTENTIONAL WEIGHT LOSS CONTRAST: 14.6ml Clariscan TECHNIQUE: Coronal ultra fast SE through the abdomen, axial 2-D spoiled GE in- and [id number], and breath-hold T2 FSE with fat saturation through the biliary system and pancreas. Oblique coronal and axial thin- slice ultra fast SE, radial thick-slab ultra fast SE centered on the extrahepatic bile ducts. COMPARISON: 12/17/2022 FINDINGS: Image quality: Diagnostic. There is mild motion artifact Lower chest: No basal effusions. Lungs are not well evaluated on MRI. Liver: There are liver cysts again seen. No suspicious enhancing lesion or diffusion restricting lesi on. Gallbladder and biliary system: Gallbladder is distended. No biliary ductal dilation. Pancreas: No ductal dilation Spleen: Nonenlarged Adrenals: No discrete nodules Kidneys: Numerous cysts. No hydronephrosis Vessels and lymph nodes: No abdominal aortic aneurysm. The main portal vein is patent. No pathologic lymph nodes by size criteria. Bowel and peritoneum: No evidence of small bowel obstruction. No pathologic ascites. Body wall: Unremarkable Pelvis: Partially visualized, the bladder dome is unremarkable. Bones: No suspicious enhancement. There are degenerative changes. IMPRESSION: No evidence of disseminated malignancy in the abdomen on MRI. Numerous hepatic and renal cysts are ag ain seen. Distended gallbladder, but without biliary ductal dilation. Reviewed by: Sxito Duran MD on 10/22/2023 11:35 AM PDT Approved by: Sixto Duran MD on 10/22/2023 11:35 AM PDT Station ID: [id number]
[2023-10-22] MEDS: GADOTERATE MEGLUMINE 7.5 MMOL/15 ML VIAL IVP ONE (17:41)
== END 2023-10-22 07:37 | disposition home or self-care (01) ==
LOC: DI 07:36
PROVIDERS: ATTEND Nurse Practitioner Family
DX: N28.1 Cyst of kidney, acquired (principal); K76.89 Other specified diseases of liver

== ENCOUNTER 2023-11-01 08:24 | Outpatient (CLI) | payer MEDICARE, OTHER | END 2023-11-01 08:25 | disposition home or self-care (01) | LOC: LAB 08:24 | PROVIDERS: ATTEND Nurse Practitioner Family | DX: R74.8 Abnormal levels of other serum enzymes (principal) | CPT/HCPCS: 36415; 82977; 84075; 84080; 86381 ==

== ENCOUNTER 2023-12-09 21:22 | Outpatient (CLI) | payer MEDICARE, OTHER | END 2023-12-09 21:23 | disposition EMS.NT | LOC: EMS 21:22 | DX: R53.1 Weakness (principal) ==

== ENCOUNTER 2023-12-25 14:59 | Outpatient (CLI) | payer MEDICARE, OTHER | END 2023-12-25 23:59 | disposition EMS.NT | LOC: EMS 14:59 | DX: Z03.89 Encounter for observation for other suspected diseases and conditions ruled out (principal) ==